=== PATIENT | male | born 1960 | race Caucasian/White ===

== ENCOUNTER → 2017-12-24 | Outpatient (CLI) | payer BC ==
[~2017-12-24] MED LIST: HYDR-4225 PO; IBU800 PO; MV-M1TAB7 PO; PRED20TA6 PO; TRA50 PO; VALA100059 PO
[2017-12-24 16:58] LABS: PLATELET COUNT, AUTOMATED 275 K/uL (150-450)
== END ==
LOC: LAB 16:41
PROVIDERS: ATTEND Emergency Medicine
DX: R63.4 Abnormal weight loss (principal)
CPT/HCPCS: 36415; 82040; 82247; 82310; 82374; 82435; 82565; 82947; 82977; 84075; 84132; 84155; 84295; 84443; 84450; 84460; 84520; 85025

== ENCOUNTER 2017-12-29 12:17 | Emergency (ER) | payer BC ==
--- NOTE | 2017-12-29 12:39 | ER Report ---
History and Physical Time Seen By MD: 12:39 Hx. of Stated Complaint: patient was sent over by dr sparks office due to "elevated liver tests" patient was suppose to have a ultrasound today at 1pm; patient states he has been sick for five months now and feels sick to his stomach and light headed HPI/ROS CHIEF COMPLAINT: Abdominal pain HISTORY OF PRESENT ILLNESS: This 57-year-old male reports fever right upper quadrant pain and lightening of the skin on his arms as well as itchiness in these areas. Fevers up to 102. He also reports malaise for the past 3 months and weight loss and the amount of 20-30 pounds over the past 3 months. States he hasn't been feeling right. He was referred by his doctor's clinic today who noticed a change in his white blood cell count increasing from 11-21. They are Are concerned about ascending cholangitis. REVIEW OF SYSTEMS: Constitutional: Generalized weakness Eyes: No discharge. ENT: No sore throat. Cardiovascular: No chest pain, no palpitations. Respiratory: No cough, no shortness of breath. Gastrointestinal: No hemoptysis Genitourinary: No hematuria. Musculoskeletal: No back pain. Skin: No rashes. Neurological: No headache. Allergies: Coded Allergies: No Known Drug Allergies (Verified , 12/29/17) Home Meds Active Scripts Hydroxyzine Hcl (HYDROXYZINE HCL) 25 Mg Tablet, 25 MG PO TID Y for PRn, #60 TAB 0 Refills Prov:HERACLIO SPARKS MD 12/25/17 Reported Medications Mv-Mn/Fa/Lycopene/Lut/Hb#178 (SHELBY MULTIVIT FOR MEN CAPLET) 1 Each Tablet, 1 EACH PO DAILY 12/24/17 Discontinued Reported Medications [None] No Conflict Check 04/26/13 Discontinued Scripts Prednisone (PREDNISONE) 20 Mg Tablet, 20 MG PO as directed, #13 0 Refills Prov:EDNA WYNNE MD 09/04/13 Valacyclovir Hcl (VALACYCLOVIR) 1,000 Mg Tablet, 1000 MG PO TID for 7 Days, 0 Refills Prov:EDNA WYNNE MD 09/04/13 Hx Smoking: No Smoking Status: Former Smoker Exposure to Second Hand Smoke?: Yes Hx Substance Use Disorder: No Hx Alcohol Use: No (hasnt drank nor smoked in 30 years) Constitutional Vital Sign - Last 24 Hours 12/29/17 12/29/17 12/29/17 12/29/17 12:26 12:28 12:30 12:47 Temp 99.7 Pulse 111 110 Resp 22 37 B/P (MAP) 137/89 (105) 137/81 134/89 (104) Pulse Ox 96 92 O2 Delivery Room Air 12/29/17 12/29/17 12/29/17 12/29/17 13:00 13:30 13:47 14:00 Pulse 103 Resp 35 B/P (MAP) 121/74 (90) 123/74 (90) 121/73 (89) Pulse Ox 92 Physical Exam General Appearance: The patient is alert, has no immediate need for airway protection and no signs of toxicity. He appears to be in no acute distress Eyes: Pupils equal and round no pallor or injection. No icterus ENT, Mouth: Mucous membranes are moist. Respiratory: There are no retractions, lungs are clear to auscultation. Cardiovascular: Regular rate and rhythm. No murmurs gallops or rubs Gastrointestinal: Abdomen is soft and non tender, no masses, bowel sounds normal. Right upper quadrant pain is elicited only with palpation at the medial ribs otherwise no peritoneal signs are present. Neurological: Normal neurological exam Skin: Warm and dry, no rashes. No clear jaundice Musculoskeletal: Neck is supple non tender. Extremities are nontender, nonswollen and have full range of motion. [ ] DIFFERENTIAL DIAGNOSIS: After history and physical exam differential diagnosis was considered for cholangitis ascending biliary tract disease. Cancer, liver mass, lymphoma. This is incomplete list of diagnoses considered. Medical Decision Making Data Points Laboratory Hematology Test 12/29/17 12:36 12/29/17 13:40 Prothrombin Time 15.3 seconds (12.0-14.4) Prothromb Time International Ratio 1.20 Activated Partial Thromboplast Time 47 seconds (23-35) Ammonia < 9 UMOL/L (9-33) Influenza Virus Type A (PCR) Negative (NEGATIVE) Influenza Virus Type B (PCR) Negative (NEGATIVE) Group A Streptococcus Screen Negative (NEGATIVE) Chemistry Test 12/29/17 12:36 12/29/17 13:40 Prothrombin Time 15.3 seconds (12.0-14.4) Prothromb Time International Ratio 1.20 Activated Partial Thromboplast Time 47 seconds (23-35) Ammonia < 9 UMOL/L (9-33) Influenza Virus Type A (PCR) Negative (NEGATIVE) Influenza Virus Type B (PCR) Negative (NEGATIVE) Group A Streptococcus Screen Negative (NEGATIVE) Coagulation Test 12/29/17 12:36 Prothrombin Time 15.3 seconds Prothromb Time International Ratio 1.20 Activated Partial Thromboplast Time 47 seconds ED Course/Re-evaluation ED Course Radiology callback: multiple retroperitoneal lymph nodes involved. Perihilar mass. Large gallstone with mass in gallbladder wall. Consult placed to Dr. Becerra (general surgery) and Carmen Myers ( hospitalist); recommends transfer to [facility]. Transfer center has been contacted. Re-evaluation Pt accepted for admission at [facility]: Dr. Krista Meehan accepting; recommends zosyn IV for now. Vitals stable for transfer. Decision to Disposition Date: Dec 29, 2017 Decision to Disposition Time: 14:58 Depart Departure Latest Vital Signs Vital Signs Date Time Temp Pulse Resp B/P (MAP) Pulse Ox O2 Delivery O2 Flow Rate FiO2 12/29/17 14:00 121/73 (89) 12/29/17 13:47 103 35 92 12/29/17 12:28 99.7 Room Air Impression: Primary Impression: Ascending cholangitis Condition: Improved Disposition: [facility]FER TO [facility] Referrals: HERACLIO SPARKS MD (PCP) KEYUR FUENTES MD Dec 29, 2017 12:39
[2017-12-29] MEDS ORDERED: diphenhydrAMINE 50 MG/ML VIAL IVP ONE (12:55)
[2017-12-29] MEDS ORDERED: NS(*) 0.9% 1000 ML BAG 1,000 ML IV ONE (12:55)
[2017-12-29] MEDS ORDERED: IOPAMIDOL 76% 75 ML INFUS BTL 75 ML ONE (13:05)
[2017-12-29 13:13] LABS: INR 1.2
--- NOTE | 2017-12-29 13:39 | RADIOLOGY IMAGING REPORT ---
FACILITY: [facility] PATIENT NAME: Tez Payton : 1960 MR: [id number] V: [id number] EXAM DATE: ORDERING PHYSICIAN: KEYUR FUENTES TECHNOLOGIST: [place] [facility] [place]z [place] : 1960 Visit/Account:[id number] Date of Sevice: 12/29/2017 CHEST PA AND LAT COMPARISONS: Single view chest dated November 28, 2016 ADDITIONAL PERTINENT HISTORY: Fever and pneumonia. FINDINGS: Cardiomediastinal silhouette: Negative. Pulmonary vasculature: Negative. Lung johnston: Negative. Pleural spaces: Negative. Osseous structures: Negative. Surrounding soft tissues: Negative. IMPRESSION: No evidence of acute cardiopulmonary disease. Report Dictated By: Rishi Saenz MD at 12/29/2017 1:33 PM Report E-Signed By: Rishi Saenz MD at 12/29/2017 1:34 PM WSN:[id number]
--- NOTE | 2017-12-29 14:10 | RADIOLOGY IMAGING REPORT ---
FACILITY: PATIENT NAME: Tez Payton : 1960 MR: [id number] V: [id number] EXAM DATE: ORDERING PHYSICIAN: KEYUR FUENTES TECHNOLOGIST: Location: [facility] Patient: Tez Payton : 1960 Visit/Account:[id number] Date of Sevice: 12/29/2017 ABDOMEN/PELVIS WITH CONTRAST HISTORY: liver mass TECHNIQUE: Following administration of IV contrast contiguous axial images acquired through the abdom en/pelvis. Coronal and sagittal reformatting also performed. Dose Lowering Technique One of the following dose optimization techniques was utilized in the performance of this exam: Autom ated exposure control; adjustment of the mA and/or kV according to the patient's size; or use of an i terative reconstruction technique. Specific details can be referenced in the facility's radiology C T exam operational policy. CONTRAST: 75 mL Isovue-370 COMPARISON: None. FINDINGS: Visualized lung bases: There is a 7 mm noncalcified nodule in the right lower lobe best seen on imag e 22 of series 2. There is a focal area of airspace consolidation in the inferior right lower lobe as well. incompletely imaged is a left hilar mass measuring approximately 2.5 x 2 cm Hepatobiliary: There is a 1.7 cm gallstone. The gallbladder is partially contracted and there is th ickening of the gallbladder wall. There is also a 9 mm hyperattenuating mass projecting from the ant erior distal, gallbladder wall. The liver appears diffusely heterogeneous with a slightly lobular contour. Spleen: Enlarged measuring 14.8 cm in length Adrenals: There Is mild nodular thickening of the adrenal glands Pancreas: Negative. Kidneys ureters or bladder: Subcentimeter hypodensities in both kidneys are too small to characterize Genitalia: Negative. GI: Negative. Vessels/spaces/nodes: There is bulky retroperitoneal adenopathy present. A education courses sales representative aortocava l lymph node measures 3.4 x 2.2 x 2.1 cm. Portacaval lymph node measures 1.7 x 5.9 x 3.4 cm. A education courses sales representative celiac node measures 2.9 x 1.8 x 1.8 cm. Small iliac lymph nodes are also present Bones/soft tissues: No aggressive appearing bone lesions are seen Additional findings: None pertinent. IMPRESSION: Bulky retroperitoneal adenopathy, incompletely imaged left hilar mass and splenomegaly. These findin gs are extremely concerning for malignancy such as lymphoma or other lymphoproliferative process. A 7 mm noncalcified nodule in the right lower lobe For a nodule measuring 6 to 8 mm in size, for a lo w risk patient, CT is recommended at 6-[address] at 18-24 months. In a high-risk pat ient, CT is recommended in 6-12 months then at 18-24 months.. There is also a focal area of airspace consolidation the inferior right lower lobe which could represent scarring atelectasis or infiltrate 1.7 cm gallstone. The gallbladder is contracted which could be related to a recent meal although cli nical correlation needed. There is a 9 mm hyperattenuating mass projecting from the anterior distal gallbladder wall. .Liver appears diffusely heterogeneous with a slightly lobular contour Results were called to KEYUR FUENTES at 12/29/2017 2:05 PM. Report Dictated By: Pattie Galan MD at 12/29/2017 1:47 PM Report E-Signed By: Pattie Galan MD at 12/29/2017 2:07 PM WSN:[id number]
[2017-12-29] MEDS ORDERED: PIPERACILLIN/TAZO* 4.5 GM VIAL 4.5 GM in NS(*) 0.9% 100 ML ADDVANT BAG 100 ML IVPB ONE (15:00)
[2017-12-29 15:30] VITALS: BP 116/66
== END 2017-12-29 16:03 | disposition short-term general hospital (02) ==
LOC: ER 12:41
DX: K83.0 Cholangitis (principal)
CPT/HCPCS: 71046; 74177; 82140; 85610; 85730; 87081; 87502; 87880; 96361; 96365; 96375; 99285; J1200; J2543; J7030; J7050; Q9967

== ENCOUNTER → 2017-12-29 | Outpatient (CLI) | payer BC ==
[2017-12-29 11:19] LABS: PLATELET COUNT, AUTOMATED 402 K/uL (150-450)
== END ==
LOC: US 10:10
PROVIDERS: ATTEND Emergency Medicine
DX: R74.8 Abnormal levels of other serum enzymes (principal); R50.9 Fever, unspecified
CPT/HCPCS: 36415; 82040; 82247; 82310; 82374; 82435; 82565; 82947; 84075; 84132; 84155; 84295; 84450; 84460; 84520; 85025; 86140; 87040

== ENCOUNTER → 2017-12-29 | Outpatient (CLI) | payer BC | LOC: AMB 15:42 | PROVIDERS: ATTEND Nurse Practitioner | DX: K83.0 Cholangitis (principal); D72.829 Elevated white blood cell count, unspecified | CPT/HCPCS: A0425; A0426 ==

== ENCOUNTER → 2018-01-19 | Outpatient (CLI) | payer BC ==
--- NOTE | 2018-01-20 18:36 | RADIOLOGY IMAGING REPORT ---
FACILITY: [facility] [place] PATIENT NAME: ELDER HOWARD : [id number] MR: [id number] V: [id number] EXAM DATE: ORDERING PHYSICIAN: DREA ARAUZ TECHNOLOGIST: Deborah Cutler EXAMINATION:TWO-DIMENSIONAL ECHOCARDIOGRAPH REASON:HODGKIN'S LYMPHOMA 2D Measurements (normal values in centimeters) LV endLV endRV endVent.LV PostAorticLeftPercent DiastolicSystolicDiastolicSeptumWallRootAtriumShortening (3.5-5.7)(0.9-2.6)(0.6-1.1)(0.6-1.1)(2.0-3.7)(1.9-4.0)(25-35%) [id number]% STROKE VOLUME: 137ml ESTIMATED EJECTION FRACTION: 51% PARASTERNAL LONG AXIS: Left ventricular systolic function appears to be mildly decreased. There appears to be some akinesis along the apex of the left ventricle. The left ventricle is enlarged. The right ventricle is the upper range of normal in size. Aortic valve & mitral valve both appear to open normally. Color examination of the valves reveals a trace of mitral insufficiency & a trace of aortic insufficiency present. Right ventricle appears to contract normally & the TAPSE is measured within normal ranges at 2.4. There is also some dyskinetic motion along a portion of the interventricular septum. PARASTERNAL SHORT AXIS: Overall left ventricular systolic function appears to be decreased. Akinesis along a portion of the interventricular septum & also the apex of the left ventricle. Aortic valve is trileaflet in configuration & appears to open normally. Color examination of the pulmonic valve was unremarkable. Color examination of the aortic valve revealed a trace of aortic insufficiency. Color examination of the tricuspid valve revealed a mild amount of tricuspid insufficiency. APICAL FOUR AND TWO CHAMBER: Akinesis along the apex & the apical portion of the interventricular septum. Otherwise appear to contract normally. Color examination of the mitral valve reveals a trace of mitral insufficiency. There is a mild amount of tricuspid insufficiency. The tricuspid regurgitation Vmax measured 3.58m/sec. Aortic valve area & mitral valve area both measure within normal ranges at 4.6 & 5.5cm2 respectively. Left atrial & right atrial volumes are measured within normal ranges at 16 & 14ml/m2. Some dyskinetic motion along the apical portion of the interventricular septum. Patient does appear to be in a bundle branch block. SUBCOSTAL VIEW: No pericardial effusion was noted. No atrioseptal or ventriculoseptal defects were appreciated. Definity contrast was used and wall motion abnormalities were shown as previously described. IVC is normal in size. Doppler examination of the mitral valve in diastole does reveal the A wave > E wave but is a difficult measurement. Strain measurements were done which showed some akinesis at the apex & we will use these measurements if further echocardiographs are desired. OVERALL IMPRESSION: 1. Slightly decreased left ventricular ejection fraction with some akinesis along the apical portion of the interventricular septum as well as the apex of the left ventricle. The left ventricle is enlarged. The right ventricle is the upper range of normal in size if not slightly enlarged. The other chamber sizes are normal. 2. A trileaflet aortic valve with no aortic stenosis, minimal aortic sclerosis & a trace of aortic insufficiency. 3. A trace of mitral insufficiency with no mitral stenosis. 4. A mild amount of tricuspid insufficiency with estimated right ventricular systolic pressures of 54mm Hg which does include an estimated right atrial pressure of 3mm Hg indicating moderate pulmonary hypertension & increased right ventricular systolic pressures. Dictated by: Chun Hernandez M.D. on 01/19/2018 at 19:20 Transcribed by: SHUBHAM on 01/20/2018 at 10:51 Approved by: Chun Hernandez M.D. on 01/20/2018 at 18:35 [facility]
== END ==
LOC: RAD 13:59
PROVIDERS: ATTEND Internal Medicine Medical Oncology
DX: I51.7 Cardiomegaly (principal); I25.10 Atherosclerotic heart disease of native coronary artery without angina pectoris; I35.1 Nonrheumatic aortic (valve) insufficiency; I34.0 Nonrheumatic mitral (valve) insufficiency; I27.20 Pulmonary hypertension, unspecified
CPT/HCPCS: 93306

== ENCOUNTER 2018-01-28 20:22 | Inpatient (IN) | payer BC, OTHER ==
[~2018-01-28] VITALS: Ht 172.7 cm; Wt 82.1 kg
[~2018-01-28 20:22] MED LIST changes: -ACET-1966 PO; -AZIT-1 PO; -CEF300 PO; -DEX4 PO; -HYDR-385 PO; -LIDO5T TP; -LISI5TAB25 PO; -LORA-630 PO; -METO25TA23 PO; -NAPR220C12 PO; -ONDA4TAB PO; -PEGFILGRASTIM 6 MG/0.6 ML SYR SUBQ ONE; -PROC10TA4 PO; -PROC25SU3 PO
--- NOTE | 2018-01-28 20:50 | ER Report ---
History and Physical Time Seen By MD: 20:50 Hx. of Stated Complaint: patients states that today gino had gotten progressively confused and is worried that the chemo yesterday (brentuximab vedotin) and neulasta around 1330 ; states that the oncologist states to be very causious of this medication HPI/ROS CHIEF COMPLAINT: Confusion HISTORY OF PRESENT ILLNESS: This is a 57 year old male. His had him come to the ER because of episodes of confusion at home today. He is very weak and tired, sleeping alot. He was in the hospital in [place] recently, admitted twice. The first time in late december for ascending cholangitis and had his gallbladder removed. He was on antibiotics. Discovered that he had Hodgkins Lymphoma. Ongoing workup. He was re-admitted to [place] because of Sepsis and was on antibiotics there by report of the patient's . Later on, had completion of studies for starting his chemotherapy, and this was started on chemotherapy and discharged home on Friday (2 days ago). He is not on any antibiotics. He says he has been having hot and cold flashes today. He has started having edema of the lower extremities since discharge on Friday as well. He has mild cough, but does not feel short of breath. He has no chest pain. He has recently started on Neulasta as well. REVIEW OF SYSTEMS: Constitutional: As above. Eyes: No vision changes. ENT: No sore throat. No congestion. Cardiovascular: No palpitations. Respiratory: As above. Gastrointestinal: No abdominal pain. No nausea or vomiting. Normal bowel movement today. Genitourinary: No dysuria. Musculoskeletal: No muscle or joint pains. Skin: No rashes. Neurological: No headache. Allergies: Coded Allergies: No Known Drug Allergies (Verified , 01/28/18) Home Meds Reported Medications Hydroxyzine Hcl (HYDROXYZINE HCL) 25 Mg Tablet, 25 MG PO 01/28/18 Acetaminophen (TYLENOL) 325 Mg Tablet, 325 MG PO, TAB 01/28/18 Naproxen Sodium (ALEVE) 220 Mg Capsule, 220 MG PO TID, CAPSULE 01/28/18 Hydrocodone Bit/Acetaminophen (HYDROCODON-ACETAMINOPHEN 5-325) 1 Each Tablet, 1 EACH PO Q6H, TAB 01/28/18 Prochlorperazine Maleate (COMPAZINE) 25 Mg Supp.rect, 10 MG PO PRN 01/28/18 Ondansetron (ZOFRAN ODT) 4 Mg Tab.rapdis, 8 MG PO Q12H, TAB.ALYSHA 01/28/18 Lorazepam (LORAZEPAM) 0.5 Mg Tablet, 0.5 MG PO PRN 01/28/18 Lidocaine Hcl (LIDOCAINE) 35.44 Gm Oint, 35.44 GM TP 01/28/18 Dexamethasone 4 Mg Tab (DEXAMETHASONE 4 MG TAB) 4 Mg Tab, 4 MG PO PRN, TAB 01/28/18 Metoprolol Succinate (METOPROLOL SUCCINATE) 25 Mg Tab.er.24h, 1 TAB PO QDAY, TAB 01/28/18 Lisinopril (LISINOPRIL) 5 Mg Tablet, 2.5 MG PO QDAY, TAB 01/28/18 Discontinued Reported Medications Mv-Mn/Fa/Lycopene/Lut/Hb#178 (SHELBY MULTIVIT FOR MEN CAPLET) 1 Each Tablet, 1 EACH PO DAILY 12/24/17 Discontinued Scripts Hydroxyzine Hcl (HYDROXYZINE HCL) 25 Mg Tablet, 25 MG PO TID Y for PRn, #60 TAB 0 Refills Prov:HERACLIO LORA MD 12/25/17 Reviewed Nurses Notes: Yes Hx Smoking: Yes Smoking Status: Former Smoker Exposure to Second Hand Smoke?: No Hx Substance Use Disorder: No Hx Alcohol Use: No (hasnt drank nor smoked in 30 years) Constitutional Vital Sign - Last 24 Hours 01/28/18 01/28/18 20:30 21:00 Temp 98.3 Pulse 121 Resp 18 B/P (MAP) 102/56 Pulse Ox 91 O2 Delivery Room Air O2 Flow Rate 1.5 Physical Exam General Appearance: The patient is alert. No acute distress. Eyes: Pupils are equal, round. No pallor, injection or icterus. ENT: Mucous membranes are moist. Normal oral mucosa. Posterior oropharynx is normal. Normal tympanic membranes and canals. Neck: Supple and non tender. No lymphadenopathy. Respiratory: Lungs somewhat diminished on the right base. No wheezing, rales or rhonchi noted. Cardiovascular: Regular rate and rhythm. No murmurs, gallops or rubs. Normal capillary refill. 1+ bilateral lower extremity edema. Gastrointestinal: Abdomen is soft and non tender. Nondistended. Normal active bowel sounds. Neurological: Alert and oriented x3 at this time. He will have episodes where he will trail off and not finish his sentence, but no confusion at this interview. Skin: Warm and dry. Musculoskeletal: No tenderness in palpation of the cervical, thoracic and lumbar spine. DIFFERENTIAL DIAGNOSIS: After history and physical exam, differential diagnosis was considered for patient who has recently been in the hospital and started on chemotherapy for Hodgkin's lymphoma, who is having episodes of confusion reported by his at home, no fever at this time but hot and cold flashes at home. Concern for infectious process causing delirium. We'll need to check for urinary infection or pulmonary infectious process or a viral infection. Also consider affective chemotherapy or metabolic disturbance. Also concerned about the new onset of edema that he is having, most likely cardiac or metabolic disturbance or chemotherapy effect, less likely would be something like blood clots. Medical Decision Making Data Points Result Diagram: 01/28/18 2100 01/28/18 2100 Laboratory Hematology Test 01/28/18 21:00 Red Blood Count 3.33 M/uL (4.00-5.60) Mean Corpuscular Volume 84.1 fL (80.0-96.0) Mean Corpuscular Hemoglobin 28.3 pg (26.0-33.0) Mean Corpuscular Hemoglobin Concent 33.7 g/dL (32.0-36.0) Red Cell Distribution Width 15.3 % (11.5-14.5) Mean Platelet Volume 8.4 fL (7.2-11.1) Neutrophils (%) (Auto) 95.6 % (39.4-72.5) Lymphocytes (%) (Auto) 3.8 % (17.6-49.6) Monocytes (%) (Auto) 0.1 % (4.1-12.4) Eosinophils (%) (Auto) 0.0 % (0.4-6.7) Basophils (%) (Auto) 0.5 % (0.3-1.4) Nucleated RBC Relative Count (auto) 0.0 /100WBC Neutrophils # (Auto) 23.9 K/uL (2.0-7.4) Lymphocytes # (Auto) 0.9 K/uL (1.3-3.6) Monocytes # (Auto) 0.0 K/uL (0.3-1.0) Eosinophils # (Auto) 0.0 K/uL (0.0-0.5) Basophils # (Auto) 0.1 K/uL (0.0-0.1) Nucleated RBC Absolute Count (auto) 0.00 K/uL Peripheral Blood Smear Yes Y/N Sodium Level 133 mmol/L (137-145) Potassium Level 4.4 mmol/L (3.5-5.0) Chloride Level 98 mmol/L (98-107) Carbon Dioxide Level 26 mmol/L (22-30) Blood Urea Nitrogen 27 mg/dl (9-21) Creatinine 0.90 mg/dl (0.66-1.25) Glomerular Filtration Rate Calc > 60.0 Random Glucose 100 mg/dl (75-110) Lactate 1.2 mmol/L (0.7-2.1) Calcium Level 8.3 mg/dl (8.4-10.2) Total Bilirubin 1.4 mg/dl (0.2-1.3) Aspartate Amino Transf (AST/SGOT) 38 U/L (0-35) Alanine Aminotransferase (ALT/SGPT) 62 U/L (0-56) Alkaline Phosphatase 431 U/L (0-126) Total Protein 5.6 gm/dl (6.3-8.2) Albumin 2.4 g/dl (3.5-5.0) Chemistry Test 01/28/18 21:00 White Blood Count 25.0 k/uL (4.5-11.0) Red Blood Count 3.33 M/uL (4.00-5.60) Hemoglobin 9.4 g/dL (14.0-18.0) Hematocrit 28.0 % (42.0-52.0) Mean Corpuscular Volume 84.1 fL (80.0-96.0) Mean Corpuscular Hemoglobin 28.3 pg (26.0-33.0) Mean Corpuscular Hemoglobin Concent 33.7 g/dL (32.0-36.0) Red Cell Distribution Width 15.3 % (11.5-14.5) Platelet Count 203 K/uL (150-450) Mean Platelet Volume 8.4 fL (7.2-11.1) Neutrophils (%) (Auto) 95.6 % (39.4-72.5) Lymphocytes (%) (Auto) 3.8 % (17.6-49.6) Monocytes (%) (Auto) 0.1 % (4.1-12.4) Eosinophils (%) (Auto) 0.0 % (0.4-6.7) Basophils (%) (Auto) 0.5 % (0.3-1.4) Nucleated RBC Relative Count (auto) 0.0 /100WBC Neutrophils # (Auto) 23.9 K/uL (2.0-7.4) Lymphocytes # (Auto) 0.9 K/uL (1.3-3.6) Monocytes # (Auto) 0.0 K/uL (0.3-1.0) Eosinophils # (Auto) 0.0 K/uL (0.0-0.5) Basophils # (Auto) 0.1 K/uL (0.0-0.1) Nucleated RBC Absolute Count (auto) 0.00 K/uL Peripheral Blood Smear Yes Y/N Glomerular Filtration Rate Calc > 60.0 Lactate 1.2 mmol/L (0.7-2.1) Calcium Level 8.3 mg/dl (8.4-10.2) Total Bilirubin 1.4 mg/dl (0.2-1.3) Aspartate Amino Transf (AST/SGOT) 38 U/L (0-35) Alanine Aminotransferase (ALT/SGPT) 62 U/L (0-56) Alkaline Phosphatase 431 U/L (0-126) Total Protein 5.6 gm/dl (6.3-8.2) Albumin 2.4 g/dl (3.5-5.0) EKG/Imaging Imaging CT OF THE BRAIN WITHOUT CONTRAST HISTORY: Confusion PROCEDURE: 3.0 mm contiguous axial sections were performed through the brain. Sagittal and coronal reformats were submitted. COMPARISON: CT brain of September 04, 2013 FINDINGS: BRAIN: Brain and intracranial structures: There is no mass lesion, hemorrhage or acute infarct. Orbits (included portions): Unremarkable Scalp: Normal. Skull: Normal. Paranasal sinuses and mastoid air cells (included portions): Normal. IMPRESSION: No evidence of acute intracranial abnormality by CT. One of the following dose optimization techniques was utilized in the performance of this exam: Automated exposure control; adjustment of the mA and/ or kV according to the patient's size; or use of an iterative reconstruction technique. Specific details can be referenced in the facility's radiology CT exam operational policy. Report Dictated By: Deonte Dietz MD at 01/28/2018 10:00 PM CHEST: Indication: Altered mental status. Technique: Frontal and lateral views were obtained. Comparison: 12/29/2017 Lines and tubes: A port catheter is now present in the SVC. Skeletal and soft tissue structures: Intact and unchanged. Heart and mediastinum: Stable. Lung johnston: There is now evidence of parenchymal consolidation and volume loss in the right lower lobe. There is minimal atelectasis or scarring at the left base. Pleural spaces: A moderate-sized right pleural effusion is now present. The lateral view demonstrates a minimal left effusion. Impression: There is now evidence of parenchymal consolidation and volume loss in the right lower lobe. A moderate-sized right pleural effusion has developed. Report Dictated By: Ascencion Fregoso MD at 01/28/2018 10:23 PM Duplex Doppler ultrasound of the bilateral lower extremities: Indication: Swelling. Technique: Compression ultrasound with duplex Doppler imaging was performed. Comparison: None. Findings: There is normal compression of the bilateral common femoral, superficial femoral, popliteal, peroneal, posterior tibial, and proximal saphenous veins. There is no evidence of echogenic thrombus. The Doppler patterns of resting flow and augmentation are within normal limits. There is no mass or fluid collection. IMPRESSION: No evidence of deep vein thrombosis in either lower extremity. Report Dictated By: Ascencion Fregoso MD at 01/28/2018 11:30 PM ED Course/Re-evaluation Clinical Indication for ER IV: Hydration, IV Access ED Course After initial evaluation, the patient had multiple things going on, all nonspecific there were difficult to determine. Head CT was obtained and was negative. The patient did have episodes of confusion but most the time just slapped while he was here in the ER. The grams were done and negative for deep vein thrombosis. X-ray was done and did show new effusion and consolidation in the right lower lobe. His white count is elevated but he also is on the last episodes hard to say if this is a result of the medicine or infectious etiology. He has been having hot and cold flashes but no documented temperatures and he has been afebrile here. His blood pressure has been running a little bit on the low side and he is tachycardic. Found to be prerenal on metabolic panel and we did give him a liter fluid which did help his tachycardia reduce a little bit, but still running tachycardic. Once everything was back, I called and spoke with Dr. Renner. I'm unsure about exactly what is happening with the hospitalizations in [place] and we'll need to get more information about those. Recommended admission for pneumonia, we'll just treat based on possible nosocomial pneumonia. Decision to Disposition Date: Jan 29, 2018 Decision to Disposition Time: 00:57 Depart Departure Latest Vital Signs Vital Signs Date Time Temp Pulse Resp B/P (MAP) Pulse Ox O2 Delivery O2 Flow Rate FiO2 01/28/18 21:00 1.5 01/28/18 20:30 98.3 121 18 102/56 91 Room Air Impression: Primary Impression: Pneumonia Additional Impressions: Confusion Pleural effusion Edema Condition: Condition Unchanged Disposition: Admitted from ER Referrals: HERACLIO LORA MD (PCP) Problem Qualifiers Primary Impression: Pneumonia Pneumonia type: due to unspecified organism Laterality: right Lung location : lower lobe of lung Qualified Codes: J18.1 - Lobar pneumonia, unspecified organism EDNA WYNNE MD Jan 28, 2018 20:50
[2018-01-28] MEDS ORDERED: HYDR-4225 PO (20:51)
[2018-01-28] MEDS ORDERED: DEX4 PO (20:51)
[2018-01-28] MEDS ORDERED: HYDR-385 PO (20:51)
[2018-01-28] MEDS ORDERED: NAPR220C12 PO (20:51)
[2018-01-28] MEDS ORDERED: LIDO5T TP (20:51)
[2018-01-28] MEDS ORDERED: LORA-630 PO (20:51)
[2018-01-28] MEDS ORDERED: PROC25SU3 PO (20:51)
[2018-01-28] MEDS ORDERED: ACET-1966 PO (20:51)
[2018-01-28] MEDS ORDERED: ONDA4TAB PO (20:51)
[2018-01-28] MEDS ORDERED: LISI5TAB25 PO (20:51)
[2018-01-28] MEDS ORDERED: METO25TA23 PO (20:51)
[2018-01-28 21:22] LABS: PLATELET COUNT, AUTOMATED 203 K/uL (150-450)
[2018-01-28] MEDS ORDERED: NS(*) 0.9% 1000 ML BAG 1,000 ML IV ONE (22:00)
--- NOTE | 2018-01-28 22:17 | RADIOLOGY IMAGING REPORT ---
FACILITY: [facility] PATIENT NAME: Tez Payton : 1960 MR: [id number] V: [id number] EXAM DATE: ORDERING PHYSICIAN: EDNA WYNNE TECHNOLOGIST: Location: [facility] - [place] Patient: Tez Payton : 1960 Visit/Account:[id number] Date of Sevice: 01/28/2018 CT OF THE BRAIN WITHOUT CONTRAST HISTORY: Confusion PROCEDURE: 3.0 mm contiguous axial sections were performed through the brain. Sagittal and coronal r eformats were submitted. COMPARISON: CT brain of September 04, 2013 FINDINGS: BRAIN: Brain and intracranial structures: There is no mass lesion, hemorrhage or acute infarct. Orbits (included portions): Unremarkable Scalp: Normal. Skull: Normal. Paranasal sinuses and mastoid air cells (included portions): Normal. IMPRESSION: No evidence of acute intracranial abnormality by CT. One of the following dose optimization techniques was utilized in the performance of this exam: Autom ated exposure control; adjustment of the mA and/or kV according to the patient's size; or use of an i terative reconstruction technique. Specific details can be referenced in the facility's radiology C T exam operational policy. Report Dictated By: Deonte Dietz MD at 01/28/2018 10:00 PM Report E-Signed By: Deonte Dietz MD at 01/28/2018 10:12 PM WSN:[id number]
--- NOTE | 2018-01-28 22:30 | RADIOLOGY IMAGING REPORT ---
FACILITY: [facility] - [place] PATIENT NAME: Tez Payton : 1960 MR: [id number] V: [id number] EXAM DATE: ORDERING PHYSICIAN: EDNA WYNNE TECHNOLOGIST: Location: [facility] - [place] Patient: Tez Payton : 1960 Visit/Account:[id number] Date of Sevice: 01/28/2018 CHEST: Indication: Altered mental status. Technique: Frontal and lateral views were obtained. Comparison: 12/29/2017 Lines and tubes: A port catheter is now present in the SVC. Skeletal and soft tissue structures: Intact and unchanged. Heart and mediastinum: Stable. Lung johnston: There is now evidence of parenchymal consolidation and volume loss in the right lower lo be. There is minimal atelectasis or scarring at the left base. Pleural spaces: A moderate-sized right pleural effusion is now present. The lateral view demonstrates a minimal left effusion. Impression: There is now evidence of parenchymal consolidation and volume loss in the right lower lob e. A moderate-sized right pleural effusion has developed. Report Dictated By: Ascencion Fregoso MD at 01/28/2018 10:23 PM Report E-Signed By: Ascencion Fregoso MD at 01/28/2018 10:27 PM [id number]
--- NOTE | 2018-01-28 23:53 | RADIOLOGY IMAGING REPORT ---
FACILITY: [facility] - [place] PATIENT NAME: Tez Payton : 1960 MR: [id number] V: [id number] EXAM DATE: ORDERING PHYSICIAN: EDNA WYNNE TECHNOLOGIST: Location: [facility] - [place] Patient: Tez Payton : 1960 Visit/Account:[id number] Date of Sevice: 01/28/2018 Duplex Doppler ultrasound of the bilateral lower extremities: Indication: Swelling. Technique: Compression ultrasound with duplex Doppler imaging was performed. Comparison: None. Findings: There is normal compression of the bilateral common femoral, superficial femoral, popliteal , peroneal, posterior tibial, and proximal saphenous veins. There is no evidence of echogenic thrombu s. The Doppler patterns of resting flow and augmentation are within normal limits. There is no mass o r fluid collection. IMPRESSION: No evidence of deep vein thrombosis in either lower extremity. Report Dictated By: Ascencion Fregoso MD at 01/28/2018 11:30 PM Report E-Signed By: Ascencion Fregoso MD at 01/28/2018 11:49 PM WSN:[id number]
[2018-01-29] VITALS (7 sets, daily range): BP systolic 91–129; BP diastolic 44–79; Ht 172.7 cm; Wt 82.1 kg
[2018-01-29] MEDS ORDERED: cefTRIAXone 2 GM VIAL IVP SCH (02:00)
[2018-01-29] MEDS ORDERED: ALBUTEROL 2.5 MG/3 ML NEB NEB PRN (02:05)
[2018-01-29] MEDS ORDERED: INFLUENZA VIRUS VAC 0.5 ML SYR IM ONLY ONE (02:05)
[2018-01-29] MEDS ORDERED: IBUPROFEN 600 MG TAB PO PRN (02:05)
--- NOTE | 2018-01-29 02:21 | History & Physical ---
History of Present Illness Chief Complaint Fever History of Present Illness This patient presented to the emergency room complaining of fever and altered mental status. He was recently diagnosed with Hodgkin's lymphoma and began treatment with chemotherapy earlier this week. He received his second dose of chemo yesterday. His reports that he has been lying around on the couch all day and acting strangely. She noted that he was warm, but did not take his temperature. He denies any other symptoms, but he did complain of a cough earlier in the week. History Problems: (1) Chronic systolic (congestive) heart failure (2) Hodgkins lymphoma (3) Ascending cholangitis Status: Acute Home Meds Reported Medications Hydroxyzine Hcl (HYDROXYZINE HCL) 25 Mg Tablet, 25 MG PO 01/28/18 Acetaminophen (TYLENOL) 325 Mg Tablet, 325 MG PO, TAB 01/28/18 Naproxen Sodium (ALEVE) 220 Mg Capsule, 220 MG PO TID, CAPSULE 01/28/18 Hydrocodone Bit/Acetaminophen (HYDROCODON-ACETAMINOPHEN 5-325) 1 Each Tablet, 1 EACH PO Q6H, TAB 01/28/18 Prochlorperazine Maleate (COMPAZINE) 25 Mg Supp.rect, 10 MG PO PRN 01/28/18 Ondansetron (ZOFRAN ODT) 4 Mg Tab.rapdis, 8 MG PO Q12H, TAB.ALYSHA 01/28/18 Lorazepam (LORAZEPAM) 0.5 Mg Tablet, 0.5 MG PO PRN 01/28/18 Lidocaine Hcl (LIDOCAINE) 35.44 Gm Oint, 35.44 GM TP 01/28/18 Dexamethasone 4 Mg Tab (DEXAMETHASONE 4 MG TAB) 4 Mg Tab, 4 MG PO PRN, TAB 01/28/18 Metoprolol Succinate (METOPROLOL SUCCINATE) 25 Mg Tab.er.24h, 1 TAB PO QDAY, TAB 01/28/18 Lisinopril (LISINOPRIL) 5 Mg Tablet, 2.5 MG PO QDAY, TAB 01/28/18 Discontinued Reported Medications Mv-Mn/Fa/Lycopene/Lut/Hb#178 (SHELBY MULTIVIT FOR MEN CAPLET) 1 Each Tablet, 1 EACH PO DAILY 12/24/17 Discontinued Scripts Hydroxyzine Hcl (HYDROXYZINE HCL) 25 Mg Tablet, 25 MG PO TID Y for PRn, #60 TAB 0 Refills Prov:HERACLIO LORA MD 12/25/17 Allergies: Coded Allergies: No Known Drug Allergies (Verified , 01/28/18) Patient History: FH: dementia FATHER, , Age:82 MOTHER, , Age:90 FH: stroke MOTHER, , Age:90 Hx Smoking: Yes Smoking Status: Former Smoker Exposure to Second Hand Smoke?: No When Quit Tobacco?: 30 years ago Caffeine Intake: Coffee Caffeine/Cups Per Day: 1 Hx Alcohol Use: No (hasnt drank nor smoked in 30 years) Hx Substance Use Disorder: No Social Drug Use: Never Review of Systems Constitutional: Fever Exam Vital Signs Vital Signs Date Time Temp Pulse Resp B/P (MAP) Pulse Ox O2 Delivery O2 Flow Rate FiO2 01/29/18 01:45 92 Nasal Cannula 2.0 01/29/18 01:38 98.6 109 17 99/59 (72) Neuro: No Gross deficits Eyes: PERRLA Cardiovascular: Regular Rate and Rhythm Respiratory: Clear to Auscultation GI: Abd Soft and Non-Tender Extremities: No Edema Integumentary: No Cyanosis Medical Decision Making Data Points Result Diagram: 01/28/18 2100 01/28/18 2100 Item Value Date Time Lactate 1.2 mmol/L 01/28/182099 EKG / Imaging Imaging Chest x-ray reviewed. Assessment and Plan Problems: (1) Bacterial pneumonia Assessment & Plan: He did present with fever and altered mental status, but only reported a cough a few days ago. His chest x-ray does show a new infiltrate in the right lower lobe. His WBC is also elevated, but he did receive Neulasta earlier today. We have started him on empiric treatment with ceftriaxone and azithromycin. Blood cultures are pending. (2) Hodgkins lymphoma Assessment & Plan: He started treatments earlier this week. (3) Chronic systolic (congestive) heart failure Assessment & Plan: His echocardiogram showed a slightly decreased ejection fraction at 51%, He is on chronic treatment with lisinopril and metoprolol, which are both currently on hold secondary to low blood pressures. Venous Thromboembolism Antithrombotics Is Pt On Any Antithrombotics?: No Exam Sepsis Risk: No Definite Risk GIGI MORA DO Jan 29, 2018 02:21
[2018-01-29] MEDS ORDERED: NS(*) 0.9% 250 ML BAG 250 ML ONE (03:00)
[2018-01-29] MEDS: AZITHROMYCIN(*) 500 MG 500 MG in NS(*) 0.9% 250 ML BAG 250 ML IVPB SCH (03:08)
[2018-01-29] MEDS ORDERED: PROC10TA4 PO (03:36)
[2018-01-29] MEDS ORDERED: NS(*) 0.9% 1000 ML BAG 1,000 ML IV PRN (11:00)
[2018-01-29] MEDS: LORATADINE 10 MG TAB PO SCH (11:58)
[2018-01-29] MEDS: ENOXAPARIN 40 MG/0.4ML SYR SC SCH (11:59)
--- NOTE | 2018-01-29 13:40 | Medical Nutrition Therapy ---
Nutrition Anthropometrics Height (Inches): 68.00 Height (Calculated Centimeters: 172.864155 Weight (Pounds): 182 Weight (Calculated Kilograms): 82.554 BMI Calculated: 27.67 Parish Nutrition Score: Probably Inadequate Parish Nutrition Risk Score: 16 Dietary Referral Nutrition Risk Factors: Unplanned Loss >10lbs Nutrition Risk Comment: Loss of 40lbs in past 3 months, prior to cancer diagnosis Nutritional Diagnosis Nutritional Risk Acuity 2: Unintended Wt Loss >5%/mo Nutritional Risk Acuity 3: Cancer Nutritional Acuity: 2-Moderate Nutrition Diagnosis: Increased Nutrient Needs Nutrition Etiology: Increased Nutrient Needs Nutrition Problem/Etiology/Sym: pt undergoing treatment for hodgkins lymphoma. Energy Requirement: 2310 (kcal/day (28 kcal/kg)) Protein Requirement: 107 (g/day (1.3 g/kg)) Fluid Requirement: 2460 (mL/day (30 mL/kg)) Diet Type: Diet as Tolerated STACY/REG Nutrition Intervention: Cont diet as ordered, Encourage intake Nutrition Monitoring & Eval Nutrition Goals: Eat 90-100% Meal Nutrition Follow-Up: Poor Intake RD Patient Assessment Time: [address] Assessment Type: RD Assessment Patient Nutrition Acuity: 2-Moderate Follow Up Date: Feb 01, 2018 Nutritional Comment: 01/29 Pt admitted with bacterial pneumonia. Per physician note pt undergoing treatment for Hodgkin's Lymphoma. Pt diet as tolerated with no intakes recorded. Pt reports no difficulty chewing or swallowing. Pt reports no known food allergies. Pt states that he has had decreased intakes since the start of treatments because food tastes different than usual. Pt NA 133, BUN 27, Bili 1.4, total prot 5.6, alb 2.4. Trailer Assembler encouraged pt to increase intake. Monitor intakes and progress. MAURICE VALENCIA Jan 29, 2018 12:12
--- NOTE | 2018-01-29 14:16 | RADIOLOGY IMAGING REPORT ---
FACILITY: [facility] PATIENT NAME: Tez Payton : 1960 MR: [id number] V: [id number] EXAM DATE: ORDERING PHYSICIAN: KADEN COSTELLO TECHNOLOGIST: Location: [facility] Patient: Tez Payton : 1960 Visit/Account:[id number] Date of Sevice: 01/29/2018 Exam type: VENOUS DOPP UPPER RIGHT EXTREM History: R upper extrem swelling after heart cath Comparison: None. Findings: The right upper extremity veins were imaged including the right internal jugular vein, right subclavi an vein, right axillary vein, right brachial vein, right basilic vein, right radial vein and right ul elen vein revealing no evidence intraluminal thrombi. The veins were compressible and phasic.. The r ight innominate vein also appeared patent IMPRESSION: 1. No sonographic evidence DVT involving the right upper extremity veins Report Dictated By: Pattie Galan MD at 01/29/2018 1:58 PM Report E-Signed By: Pattie Galan MD at 01/29/2018 2:12 PM WSN:[email or web address]
--- NOTE | 2018-01-29 15:00 | Hospitalist Progress Note ---
Subjective Progress Notes Subjective The patient is feeling better today. Physical Exam Vital Signs Date Time Temp Pulse Resp B/P (MAP) Pulse Ox O2 Delivery O2 Flow Rate FiO2 01/29/18 12:06 97.7 88 16 93/55 (68) 94 Nasal Cannula 2.0 Intake and Output 01/30/18 06:59 Intake Total 120 ml Balance 120 ml Intake Oral 120 ml General Appearance: Alert, Awake, No Acute Distress Neuro: No Gross deficits Cardiovascular: Other (Slightly tachy, regular. ) Respiratory: Other (Markedly decreased BS right base. Eugophony noted.) GI: Soft and Non-Tender Extremities: Warm, Perfused Psych: Appropriate Mood & Affect Result Diagram: 01/28/18209901/28/182099 Assessment and Plan Problems: (1) Bacterial pneumonia Assessment & Plan: He did present with fever and altered mental status, but only reported a cough a few days ago. His chest x-ray does show a new infiltrate in the right lower lobe. His WBC is also elevated, but he did receive Neulasta earlier today. We have started him on empiric treatment with ceftriaxone and azithromycin. Blood cultures are negative thus far. (2) Hodgkins lymphoma Assessment & Plan: He started chemotherapy treatments earlier this week. (3) Chronic systolic (congestive) heart failure Assessment & Plan: His echocardiogram here showed a slightly decreased ejection fraction at 51%. He then had a cardiac catheterization which showed an EF of 35% with normal coronary arteries. He is on chronic treatment with lisinopril and metoprolol, which are both currently on hold secondary to low blood pressures. Time Spent on Plan of Care: < 30 min Exam Sepsis Risk: No Definite Risk KADEN COSTELLO MD Jan 29, 2018 15:00
[2018-01-30] MEDS ORDERED: cefTRIAXone(*) 2 GM VIAL 2 GM in NS(*) 0.9% 100 ML ADDVANT BAG 100 ML IVPB SCH (02:00)
[2018-01-30] MEDS: AZITHROMYCIN(*) 500 MG 500 MG in NS(*) 0.9% 250 ML BAG 250 ML IVPB SCH (02:24)
[2018-01-30 03:13] VITALS: BP 131/71
[2018-01-30 06:11] LABS: PLATELET COUNT, AUTOMATED 117 K/uL (150-450)
[2018-01-30 07:08] VITALS: BP 100/57
[2018-01-30] MEDS: LORATADINE 10 MG TAB PO SCH (09:22)
[2018-01-30] MEDS: ENOXAPARIN 40 MG/0.4ML SYR SC SCH (09:22)
[2018-01-30 09:46] LABS: PLATELET COUNT, AUTOMATED 112 K/uL (150-450)
[2018-01-30 11:33] VITALS: BP 98/57
[2018-01-30] MEDS ORDERED: CEF300 PO (13:50)
[2018-01-30] MEDS ORDERED: AZIT-1 PO (13:50)
--- NOTE | 2018-01-30 14:25 | Hospitalist Depart ---
Discharge Summary Reason for Hosp/Final Diag: (1) Bacterial pneumonia Hospital Course & Plan: He did present with fever and altered mental status, but only reported a cough a few days ago. His chest x-ray does show a new infiltrate in the right lower lobe. His WBC is also elevated, but he did receive Neulasta earlier today. We have started him on empiric treatment with ceftriaxone and azithromycin. Blood cultures are negative thus far. (2) Anemia Status: Acute Hospital Course & Plan: Secondary to chemotherapy. No evidence of bleeding. His Hgb is stable this morning on the repeat. Likely, there was dilutional affect from admission to today. He is to get a repeat on 02/02. He denies light headedness with ambulation. His heart rate is borderline tachycardic, but he is off the metoprolol. BP is low normal, but that appears to be his baseline. (3) Chronic systolic (congestive) heart failure Hospital Course & Plan: He had a cardiac catheterization which showed an EF of 35% with normal coronary arteries. He is on chronic treatment with lisinopril and metoprolol, which were both on hold secondary to low blood pressures. He can restart metoprolol, but has been instructed to stop it and call his Physician Asst if he is getting light headed with it. (4) Hodgkins lymphoma Hospital Course & Plan: [facility]ed by the [facility]. Departure Weight (Pounds): 181 Result Diagram: 01/30/1893701/30/18937 Item Value Date Time Hemoglobin 16.9 g/dL 12/29/17 1028 Hemoglobin 9.4 g/dL L 01/28/18 2100 Hemoglobin 7.3 g/dL *L 01/30/18 0515 Hemoglobin 7.8 g/dL *L 01/30/18 0938 White Blood Count 25.0 k/uL H 01/28/18 2100 White Blood Count 11.1 k/uL H 01/30/18 0515 White Blood Count 11.2 k/uL H 01/30/18 0938 Platelet Count 203 K/uL 01/28/182099 Platelet Count 117 K/uL L 01/30/18 0515 Platelet Count 112 K/uL L 01/30/18 0938 Creatinine 0.90 mg/dl 01/28/182099 Creatinine 0.60 mg/dl L 01/30/18 05 Creatinine 0.60 mg/dl L 01/30/18 09 Blood Urea Nitrogen 15 mg/dl 01/30/18 09 Blood Urea Nitrogen 16 mg/dl 01/30/18 05 Blood Urea Nitrogen 27 mg/dl H 01/28/182099 Total Bilirubin 1.4 mg/dl H 01/28/182099 Total Bilirubin 0.7 mg/dl 01/30/18 05 Alkaline Phosphatase 431 U/L H 01/28/18 2100 Alkaline Phosphatase 286 U/L H 01/30/18 0515 Aspartate Amino Transf (AST/SGOT) 12 U/L 01/30/18 05 Alanine Aminotransferase (ALT/SGPT) 34 U/L 01/30/18 05 Aspartate Amino Transf (AST/SGOT) 38 U/L H 01/28/182099 Alanine Aminotransferase (ALT/SGPT) 62 U/L H 01/28/182099 Prothromb Time International Ratio 1.20 12/29/17 1236 No growth from blood cultures from 01/29 x2. Imaging 01/29/18 Venogram - 1. No sonographic evidence DVT involving the right upper extremity veins 01/28/18 CXR - There is now evidence of parenchymal consolidation and volume loss in the right lower lobe. A moderate-sized right pleural effusion has developed. 01/28/[address] - No evidence of acute intracranial abnormality by CT. 01/28/18 Venogram - No evidence of deep vein thrombosis in either lower extremity. Condition: Improved Discharge: Home Discharge Instructions Home Meds Active Scripts Cefdinir 300 Mg Cap (OMNICEF 300 MG CAP (OR EQUIV)) 300 Mg Cap, 300 MG PO BID, # 10 CAP Prov:CHRIS BARNES MD 01/30/18 Azithromycin (ZITHROMAX) 250 Mg Tablet, 1 TAB PO HS, #3 TAB Prov:CHRIS BARNES MD 01/30/18 Reported Medications Prochlorperazine Maleate (Compazine) 10 Mg Tablet, PO Q8H Y for NAUSEA/VOMITING 01/29/18 Hydroxyzine Hcl (HYDROXYZINE HCL) 25 Mg Tablet, 25 MG PO Take 25 mg by mouth 3 times daily as needed for itching or nausea 01/28/18 Acetaminophen (TYLENOL) 325 Mg Tablet, 325 MG PO, TAB 01/28/18 Hydrocodone Bit/Acetaminophen (HYDROCODON-ACETAMINOPHEN 5-325) 1 Each Tablet, 1 EACH PO Q6H, TAB 01/28/18 Ondansetron (ZOFRAN ODT) 4 Mg Tab.rapdis, 8 MG PO Q12H, TAB.ALYSHA 01/28/18 Metoprolol Succinate (METOPROLOL SUCCINATE) 25 Mg Tab.er.24h, 1 TAB PO QDAY, TAB Take 0.5 tablet by mouth 01/28/18 Discontinued Reported Medications Naproxen Sodium (ALEVE) 220 Mg Capsule, 220 MG PO TID, CAPSULE 440 mg by mouth daily as needed for pain 01/28/18 Lorazepam (LORAZEPAM) 0.5 Mg Tablet, 0.5 MG PO PRN 01/28/18 Lidocaine Hcl (LIDOCAINE) 35.44 Gm Oint, 35.44 GM TP 01/28/18 Dexamethasone 4 Mg Tab (DEXAMETHASONE 4 MG TAB) 4 Mg Tab, 4 MG PO PRN, TAB Take 2 tabs by mouth daily for nausea 01/28/18 Lisinopril (LISINOPRIL) 5 Mg Tablet, 2.5 MG PO QDAY, TAB 01/28/18 Prochlorperazine Maleate (COMPAZINE) 25 Mg Supp.rect, 10 MG PO PRN 01/28/18 Mv-Mn/Fa/Lycopene/Lut/Hb#178 (SHELBY MULTIVIT FOR MEN CAPLET) 1 Each Tablet, 1 EACH PO DAILY 12/24/17 Discontinued Scripts Hydroxyzine Hcl (HYDROXYZINE HCL) 25 Mg Tablet, 25 MG PO TID Y for PRn, #60 TAB 0 Refills Prov:HERACLIO LORA MD 12/25/17 Diet: Fluid Restricted, No Added Salt (MEJIA) Activity: As Tolerated Special Instructions: Go to the ER for bleeding, fevers, chills, worsening SOB, or light headedness. Follow up with your Oncologist on 02/02, as scheduled. Get a CMP and CBC at the Cancer Center before the visit. Weigh yourself daily and call your Physician Asst for an increase of 5 pounds from baseline. Follow the diet and fluid restrictions per your Physician Asst. Follow up with you Physician Asst, as scheduled, and discuss restarting lisinopril. Follow up with your PCP in a couple weeks and schedule a follow up CXR in about 6 weeks. Copies to: HERACLIO LORA MD; YOSI ARIZMENDI MD; RACHELLE HEATH MD Venous Thromboembolism Antithrombotics Is Pt On Any Antithrombotics?: No CHRIS BARNES MD Jan 30, 2018 14:25
[2018-01-30] MEDS ORDERED: HEPARIN FLSH (PORT) 500 UN/5ML IVP ONE (15:45)
[2018-01-30 16:15] VITALS: BP 103/60
[2018-02-02] MEDS ORDERED: FURO20TA19 PO (15:19)
[2018-02-02] MEDS ORDERED: POTA-28 PO (15:19)
== END 2018-01-30 17:30 | disposition home or self-care (01) | DRG 194 ==
LOC: ER 21:00 → MED 01-29 01:04
PROVIDERS: ADMIT Family Medicine; ATTEND Family Medicine
DX: J18.1 Lobar pneumonia, unspecified organism (principal); I50.22 Chronic systolic (congestive) heart failure; C81.90 Hodgkin lymphoma, unspecified, unspecified site; D64.81 Anemia due to antineoplastic chemotherapy; R60.0 Localized edema; T45.1X5A Adverse effect of antineoplastic and immunosuppressive drugs, initial encounter; D63.0 Anemia in neoplastic disease; Z90.49 Acquired absence of other specified parts of digestive tract; Z87.891 Personal history of nicotine dependence
CPT/HCPCS: 36415; 70450; 71046; 82040; 82247; 82310; 82374; 82435; 82565; 82947; 83605; 84075; 84132; 84155; 84295; 84450; 84460; 84520; 85025; 86850; 86900; 86901; 86920; 87040; 93970; 96360; 99285; J0456; J0696; J1642; J1650; J7030; J7050

== ENCOUNTER → 2018-01-28 | Outpatient (CLI) | payer BC, OTHER ==
[~2018-01-28] MED LIST changes: +ACET-1966 PO; +AZIT-1 PO; +CEF300 PO; +DEX4 PO; +HYDR-385 PO; +LIDO5T TP; +LISI5TAB25 PO; +LORA-630 PO; +METO25TA23 PO; +NAPR220C12 PO; +ONDA4TAB PO; +PEGFILGRASTIM 6 MG/0.6 ML SYR SUBQ ONE; +PROC10TA4 PO; +PROC25SU3 PO
== END ==
LOC: SPU 07:39
PROVIDERS: ATTEND Internal Medicine
DX: C81.18 Nodular sclerosis Hodgkin lymphoma, lymph nodes of multiple sites (principal)
CPT/HCPCS: 96372; J2505

== ENCOUNTER → 2018-02-11 | Outpatient (CLI) | payer BC, OTHER ==
[2018-01-29 09:30] VITALS: BMI 27.7
[~2018-02-11] MED LIST changes: +ACET-1966 PO; +AZIT-1 PO; +CEF300 PO; +DEX4 PO; +FURO20TA19 PO; +HYDR-385 PO; +LIDO5T TP; +LISI5TAB25 PO; +LORA-630 PO; +METO25TA23 PO; +NAPR220C12 PO; +ONDA4TAB PO; +PEGFILGRASTIM 6 MG/0.6 ML SYR SUBQ ONE; +POTA-28 PO; +PROC10TA4 PO; +PROC25SU3 PO
[2018-02-11 15:37] VITALS: BP 108/68
== END ==
LOC: SPU 07:35
PROVIDERS: ATTEND Internal Medicine
DX: C81.90 Hodgkin lymphoma, unspecified, unspecified site (principal)
CPT/HCPCS: 96372; J2505

== ENCOUNTER 2018-04-14 09:31 | Outpatient (RCR) | payer BC ==
[2018-01-19 16:09] VITALS: BP 101/63
[2018-01-27 10:14] VITALS: BP 89/58
[2018-01-27] MEDS: LIDOCAINE/SOD BICARB 8.4% SYR ID PRN (10:23)
[2018-01-27] MEDS: NS(*) 0.9% 500 ML BAG 500 ML IV PRN (10:24)
[2018-01-27] MEDS: DEXAMETHASONE SOD PHOS 10MG/ML IVP PRN (10:36)
[2018-01-27 13:14] VITALS: BP 87/50
[2018-01-27] MEDS: HEPARIN FLSH (PORT) 500 UN/5ML IVP PRN (13:17)
--- NOTE | 2018-01-28 15:18 | Pharmacy Note ---
Pharmacy Note Date Provider Notified: Jan 27, 2018 Note: Chemotherapy Education Note: Regimen: Brentuximab + Vinblastine/Dacarbazine Chemoeducation Date: 01/27/18 Chemotherapy education on Brentuximab was completed on 01/27/18 and included discussion of toxicities, signs and symptoms of concern, administration and purpose/mechanism of action. Of note, patient received Cycle 1 Day 1 - vinblastine and dacarbazine as an inpatient at [facility] on 01/25/18. Initial chemotherapy education on vinblastine and dacarbazine was completed at [facility]. During education, all three drugs were reviewed for completeness. Brentuximab - toxicities discussed were the risk for PML (mood changes, memory impairment, decreased cognition, motor incoordination, changes in vision or speech), edema, neuropathy, rash, myalgias, bone marrow suppression (anemia, thrombocytopenia, neutropenia and risks associated with each of these), increased risk of pancreatitis, hepatotoxicity, infection, and pulmonary toxicity. Also discussed risk of an infusion reaction while receiving brentuximab. This list is not all inclusive, but represents the most common or serious toxicities. Pt has a history of decreased ejection fraction and poor pulmonary function which will be closely monitored during treatment. Pt is set up to follow with cardiology. Vinblastine- toxicities discussed were bone marrow suppression, extravasation, stomatitis, neurotoxicity/neuropathy and possibly constipation, and pulmonary toxicity. Vinblastine is a vesicant and will be administered through a port. This list is not all inclusive, but represents the most common or serious toxicities. Dacarbazine - toxicities discussed were bone marrow suppression, extravasation, alopecia, N/V, and hepatotoxicity. This list is not all inclusive, but represents the most common or serious toxicities. Discussed symptom management related to nausea and vomiting, avoiding sick contacts, scheduling, and importance of close follow up. Reviewed consent and toxicities discussed. Patient signed the consent for treatment and it will be placed in the patients chart. Questions were answered to their satisfaction. Discussed the ability to call with any future questions. Amanda Chinchilla, PharmD, BCOP AMANDA CHINCHILLA Jan 28, 2018 14:44
[2018-01-29 09:30] VITALS: Ht 173.1 cm; Wt 80.8 kg
[2018-02-02 14:02] VITALS: BP 104/66
[2018-02-02 14:14] LABS: PLATELET COUNT, AUTOMATED 288 K/uL (150-450)
--- NOTE | 2018-02-04 04:33 | [facility] ONCOLOGY NOTE ---
DATE OF VISIT: February 02, 2018 CHIEF COMPLAINT/REASON FOR VISIT Mr. Payton is a 57-year-old gentleman with classical nodular sclerosis Hodgkin lymphoma on treatment with brentuximab, vinblastine and dacarbazine here for followup during cycle one. HISTORY OF PRESENT ILLNESS Mr. Payton returns. Please see my note from January 19, 2018 as well as the notes from [place] for more details. In short, Mr. Payton tolerated his first cycle well, but then developed a pneumonia. He was in the hospital over this weekend, and now feels much better. He continues antibiotics. His labs actually look quite well today, and he did receive Neulasta. We are utilizing brentuximab instead of bleomycin given his heart history, and we are not using anthracyclines, given the suppressed EF. he has an appointment in followup with Dr. Harry in cardiology on February 17. We are hopeful that he can complete antibiotics and then stay on scheduled on approximately February 11 for cycle one, day 15. I believe he is on track for that currently. PAST MEDICAL HISTORY 1. Bonilla's palsy. 2. History of hernia repair. 3. Cholecystectomy. 4. Nodular sclerosis, classical Hodgkin lymphoma, with involvement of the liver , stage IV. Plan for 12 doses of chemotherapy. Avoiding bleomycin due to his heart history as well as avoiding anthracyclines due to his suppressed EF. FAMILY HISTORY Cancer in the sister. SOCIAL HISTORY Patient is . He has presented with his . Former smoker, quit in 1977. REVIEW OF SYSTEMS CONSTITUTIONAL: No fevers, chills, significant weight change. HEENT: No headache or vision changes. CARDIOVASCULAR: No chest pain, dyspnea on exertion or edema. RESPIRATORY: No shortness of breath, wheeze, cough currently. He is getting over pneumonia and feels that his symptoms are much improved. ENDOCRINE: No heat or cold intolerance. PSYCHIATRIC: No anxiety or depression. SKIN: No concerning findings. Remainder of 14-point review of systems is otherwise negative. PHYSICAL EXAMINATION VITAL SIGNS: Blood pressure 104/66, pulse 97, respiratory rate 16, temperature 99.8 Fahrenheit, oxygen saturation 92% on room air. GENERAL: Stable condition, resting comfortably in the chair. HEENT: Normocephalic, atraumatic. LUNGS: Some diminished sounds at the right base with some faint crackles at the left base. He is getting over this pneumonia. CARDIOVASCULAR: Regular rate and rhythm. Low blood pressure. I do recommend that he continue the metoprolol, given his suppressed EF. The lisinopril is currently being held. ABDOMEN: Soft, nontender. LYMPHATIC: The patient notes that his lymph nodes have resolved, and his night sweats have resolved. Full physical exam deferred today due to amount of time spent in counseling and coordination of care. IMPRESSION AND PLAN Mr. Payton is a pleasant 57-year-old gentleman with the followin. Stage BRANDT classical Hodgkin lymphoma, nodular sclerosis subtype. He is not a candidate for an anthracycline, and we are avoiding use of bleomycin given his cardiopulmonary status. Plan for 12 doses of brentuximab, vinblastine and dacarbazine. This first cycle was complicated with a pneumonia, which is not an uncommon complication. He is doing better, though, and so we will continue therapy on time. We will utilize Neulasta with each cycle if need be. If his labs look well, we may give it monthly, though. Given his labs today, I anticipate though we do plan to utilize Neulasta again with cycle one, day 15. 2. Congestive heart failure. The etiology for this is not completely clear. We would like to continue the beta sal, even though his blood pressure is low. He does have edema, and we need to utilize some Lasix. With the Lasix, I plan to use potassium. He has followup with cardiology in early February. We may resume the lisinopril 2.5 mg in the future, but given the borderline low blood pressure, I am holding it at this time. I answered all of their many questions today. Billing: Return visit level 5, high risk, high complexity. Total time 45 minutes, counseling time 30. MTDD
--- NOTE | 2018-02-07 16:57 | ONCOLOGY FOLLOW UP NOTE ---
EVENT DATE: January 19, 2018 CHIEF COMPLAINT/REASON FOR VISIT Mr. Payton is a 57-year-old gentleman with classical nodular sclerosis, Hodgkin 's lymphoma on treatment with brentuximab, vinblastine and dacarbazine, here for followup. HISTORY OF PRESENT ILLNESS Mr. Payton returns. Please see my notes from [place] for additional details. He is starting brentuximab, vinblastine and dacarbazine in the near future, as he is not a candidate for aggressive chemotherapy. His ejection fraction is suppressed and we do not have a clear etiology for this. He is following with Dr. Harry in Cardiology to investigate this further. We cannot give him anthracycline as a result. He appears quite unwell and I would like him to be admitted to the hospital to pursue his first cycle of therapy. I am hopeful that we will be able to give his second through twelfth doses of therapy outside of the hospital. PAST MEDICAL HISTORY 1. Bonilla's palsy. 2. History of hernia repair. 3. Cholecystectomy. 4. Nodular sclerosis. 5. Classical Hodgkin's lymphoma with involvement of the liver stage IV. Avoiding bleomycin due to his heart history and avoiding anthracyclines due to his suppressed EF. Utilizing brentuximab, vinblastine and dacarbazine. FAMILY HISTORY Cancer in his sister. SOCIAL HISTORY Patient is , has presented again with his . Former smoker. REVIEW OF SYSTEMS CONSTITUTIONAL: No fevers, chills, weight change. HEENT: No headache or vision changes. CARDIOVASCULAR: No chest pain, dyspnea on exertion or edema. RESPIRATORY: No shortness of breath, wheeze or cough. ENDOCRINE: No heat or cold intolerance. PSYCHIATRIC: No anxiety or depression. SKIN: No concerning rashes or lesions. MUSCULOSKELETAL: Generalized weakness and fatigue. The remainder of the 14-point review of systems is otherwise negative. PHYSICAL EXAMINATION GENERAL: ECOG performance status of 2 currently. He appears uncomfortable in the chair, ill-appearing gentleman. HEENT: Normocephalic, atraumatic. CARDIOVASCULAR: Regular rate and rhythm. LUNGS: Clear at this time. ABDOMEN: Soft. Full physical exam deferred today to amount of time spent in counseling and coordination of care. IMPRESSION AND PLAN Mr. Payton is a pleasant 57-year-old gentleman with the following: Stage BRANDT classical Hodgkin's lymphoma nodular sclerosis subtype with liver involvement. Plan to get him to the inpatient setting to investigate his heart and begin treatment very soon. We may need to avoid anthracyclines due to his suppressed EF and avoid use of bleomycin given his cardiopulmonary status. I do not have a good etiology for his CHF. I answered all of his questions today, coordinated his admission. Billing: High risk, high complexity. Return visit level 5. Total time 60 minutes, counseling time 45. MTDD
[2018-02-10 09:27] VITALS: BP 115/72
[2018-02-10] MEDS: ACETAMINOPHEN 325 MG TAB PO PRN (10:44)
[2018-02-10] MEDS: diphenhydrAMINE 25 MG CAP PO PRN (10:45)
[2018-02-10] MEDS: DEXAMETHASONE SOD PHOS 10MG/ML IVP PRN (10:46)
[2018-02-10] MEDS: PALONOSETRON 0.25 MG/5 ML VIAL IVP PRN (10:46)
[2018-02-10] MEDS: FOSAPREPITANT DIM 150 MG/5 ML 150 MG in NS(*) 0.9% 250 ML BAG 245 ML IVPB PRN (11:26)
[2018-02-10] MEDS: HEPARIN FLSH (PORT) 500 UN/5ML IVP PRN (14:31)
[2018-02-10 14:34] VITALS: BP 111/67
[2018-02-16 09:53] LABS: PLATELET COUNT, AUTOMATED 116 K/uL (150-450)
[2018-02-16 10:00] VITALS: BP 109/71
[2018-02-16] MEDS: NS(*) 0.9% 500 ML BAG 500 ML IV PRN (11:00)
[2018-02-16] MEDS: HEPARIN FLSH (PORT) 500 UN/5ML IVP PRN (12:01)
--- NOTE | 2018-02-17 17:23 | ONCOLOGY FOLLOW UP NOTE ---
EVENT DATE: February 16, 2018 CHIEF COMPLAINT/REASON FOR VISIT Mr. Payton is a pleasant 57-year-old gentleman with classic nodular sclerosing Hodgkin lymphoma, on treatment with brentuximab, vinblastine and dacarbazine, here for followup. HISTORY OF PRESENT ILLNESS Mr. Payton returns. Please see my notes from [place] for more details. He has received two doses of brentuximab, vinblastine and dacarbazine. He is not a candidate for anthracycline or bleomycin due to significant cardiopulmonary issues. He follows with (39) in Cardiology. His ejection fraction is suppressed and we do not have a good etiology for this. The patient has been receiving Neulasta, although it is questionable about whether he needs it, as his saida has been brief. We have had times of significantly elevated white blood counts as well. He complains of continued weight loss, extreme fatigue on days three, four, five and six. He receives the Neulasta on Friday and then has profound fatigue that following weekend. No neuropathy of concern. He is working with Nutrition and is eating well. PAST MEDICAL HISTORY 1. Bonilla's palsy. 2. History of hernia repair. 3. Cholecystectomy. 4. Nodular sclerosis. 5. Classical Hodgkin's lymphoma with involvement of the liver stage IV. Avoiding bleomycin due to his heart history and avoiding anthracyclines due to his suppressed EF. Utilizing brentuximab, vinblastine and dacarbazine. FAMILY HISTORY Cancer in his sister. SOCIAL HISTORY Patient is , has presented again with his . Former smoker. REVIEW OF SYSTEMS CONSTITUTIONAL: No fevers, chills, weight change. HEENT: No headache or vision changes. CARDIOVASCULAR: No chest pain, dyspnea on exertion or edema. RESPIRATORY: No shortness of breath, wheeze or cough. ENDOCRINE: No heat or cold intolerance. PSYCHIATRIC: No anxiety or depression. SKIN: No concerning rashes or lesions. MUSCULOSKELETAL: Generalized weakness and fatigue. HEMATOLOGIC/LYMPHATIC: No concerning lumps or bumps. No bleeding. GASTROINTESTINAL: No nausea, vomiting. NEUROLOGIC: No numbness. PHYSICAL EXAMINATION VITAL SIGNS: Blood pressure 109/77, pulse 116, respiratory rate 16, temperature 98.0 Fahrenheit, oxygen saturation 95% on room air. Weight 63.9 kg. Pain 6/10, fatigue 6/10. GENERAL: In stable condition. ECOG performance status of 2. Resting comfortably in the chair. HEENT: Normocephalic, atraumatic. CARDIOVASCULAR: Tachycardic. His blood pressure is low. No edema. The patient has had edema and hypertension previously. I believe he is volume depleted now. He has stopped the Lasix appropriately. Given this acute change , I am hopeful that it is a sign that we have treated his cancer adequately and we are starting to get better fluid management. LUNGS: Clear. ABDOMEN: Soft. EXTREMITIES: No clubbing, cyanosis or edema. SKIN: Dry. Remainder of physical exam unremarkable. IMPRESSION AND PLAN Mr. Payton is a pleasant 57-year-old gentleman with the following: Stage BRANDT classical Hodgkin lymphoma nodular sclerosis subtype with liver involvement. I am hopeful that he is responding, as his fluid management has changed significantly. We will continue the brentuximab, vinblastine and dacarbazine, but need to reduce the dose by 20%. He is having significant pains with Neulasta and we are not seeing significant nadirs with his chemotherapy treatment. Thus we will stop the Neulasta. We will get labs every week and may need to add antibiotics if he has significant neutropenia. Continue to avoid athracycline due to the suppressed ejection fraction as well as avoid bleomycin given his cardiopulmonary status. We do not have a good etiology for his CHF, but I am concerned it may be related to his lymphoma. I answered all of his questions today. We will see him with each cycle. We will get the PET scan after four doses to make sure we are moving in the right direction. Billing: High risk, high complexity. Return visit level 5. Total time 45 minutes, counseling time 30. MTDD
[2018-02-24 09:47] VITALS: BP 124/74
[2018-02-24] MEDS: LIDOCAINE/SOD BICARB 8.4% SYR ID PRN (09:51)
[2018-02-24] MEDS: NS(*) 0.9% 500 ML BAG 500 ML IV PRN (09:52)
[2018-02-24] MEDS: HEPARIN FLSH (PORT) 500 UN/5ML IVP PRN (09:53)
[2018-02-24] MEDS: FOSAPREPITANT DIM 150 MG/5 ML 150 MG in NS(*) 0.9% 250 ML BAG 245 ML IVPB PRN (10:00)
[2018-02-24] MEDS: PALONOSETRON 0.25 MG/5 ML VIAL IVP PRN (10:27)
[2018-02-24] MEDS: DEXAMETHASONE SOD PHOS 10MG/ML IVP PRN (10:27)
[2018-02-24] MEDS: diphenhydrAMINE 25 MG CAP PO PRN (10:27)
[2018-02-24] MEDS: ACETAMINOPHEN 325 MG TAB PO PRN (10:27)
[2018-03-02 08:08] VITALS: BP 107/64
[2018-03-02 08:14] LABS: PLATELET COUNT, AUTOMATED 250 K/uL (150-450)
--- NOTE | 2018-03-03 16:59 | ONCOLOGY FOLLOW UP NOTE ---
EVENT DATE: March 02, 2018 CHIEF COMPLAINT/REASON FOR VISIT Mr. Payton is a pleasant 57-year-old gentleman with classic nodular sclerosing Hodgkin's lymphoma on treatment with brentuximab, vinblastine and dacarbazine, here for followup during cycle three of 12. HISTORY OF PRESENT ILLNESS Mr. Payton returns. Please see my consultation notes from [place] in the [employer] system for more details. He has received three doses of brentuximab, vinblastine and dacarbazine. He is not a candidate for anthracycline or bleomycin due to significant cardiopulmonary issues. He follows with Dr. Harry. We had held his lisinopril due to dizziness, but I completely agree that he needs to be on it, perhaps at a lower dose. He is not having major dizziness since restarting it, but is having slight dizziness. I encouraged him to continue it, but if it worsens he will need to follow up with Cardiology. The patient is now off of Neulasta as he has not had significant nadirs with his treatment. He is tolerating this adjustment well. Advised him to watch closely. If he gets any signs of infection we will need to put him on antibiotics. This included fever alone. He continues to have some weight loss. His weight fluctuates between cycles. He is working to maintain his weight and his strength, but it is affecting him. No neuropathy at all he states. Grade 1 fatigue. No significant GI issues. He does note some urinary frequency, but no burning, hematuria or other issues. I do believe this is due to the fluid that we give him with treatment, but he as a few days of nocturia and currently it is down to one to two per day. PAST MEDICAL HISTORY 1. Bonilla's palsy. 2. History of hernia repair. 3. Cholecystectomy. 4. Nodular sclerosis. 5. Classical Hodgkin's lymphoma with involvement of the liver stage IV. Avoiding bleomycin due to his heart history and avoiding anthracyclines due to his suppressed EF. Utilizing brentuximab, vinblastine and dacarbazine. FAMILY HISTORY Cancer in his sister. SOCIAL HISTORY Patient is , has presented again with his . Former smoker. REVIEW OF SYSTEMS CONSTITUTIONAL: No fevers, chills, weight change. HEENT: No headache or vision changes. CARDIOVASCULAR: No chest pain, dyspnea on exertion or edema. RESPIRATORY: No shortness of breath, wheeze or cough. ENDOCRINE: No heat or cold intolerance. PSYCHIATRIC: No anxiety or depression. SKIN: No concerning rashes or lesions. MUSCULOSKELETAL: Generalized weakness and fatigue. HEMATOLOGIC/LYMPHATIC: No concerning lumps or bumps. No bleeding. GASTROINTESTINAL: No nausea, vomiting. NEUROLOGIC: No numbness. PHYSICAL EXAMINATION VITAL SIGNS: Blood pressure 107/64, pulse 96, respiratory rate 16, temperature 97 Fahrenheit, oxygen saturation 98% on room air. Pain 0/10, fatigue 5/10. Low fall risk. GENERAL: In stable condition. Resting comfortably in the chair. ECOG performance status of 1. He is improved with therapy. HEENT: Normocephalic, atraumatic. CARDIOVASCULAR: Regular rate and rhythm. No tachycardia. No extra sounds. Normal S1, S2. No murmurs. LUNGS: Clear to auscultation bilaterally. ABDOMEN: Soft, nontender. No masses. His liver is not tender. EXTREMITIES: No clubbing, cyanosis or edema. SKIN: No bruising. It is dry. PSYCHIATRIC: Normal mood and affect. Remainder of physical exam unremarkable. IMPRESSION AND PLAN Mr. Payton is a pleasant 57-year-old gentleman with the following: Stage BRANDT classic Hodgkin lymphoma nodular sclerosing subtype with liver involvement. I strongly believe that he is responding given the improvement of his liver numbers, particularly the alk phos. It peaked in the 800s and it is now approximately 280. We are getting a PET scan after four doses to make sure we are moving on the right track, as we are using an atypical regimen due to his cardiopulmonary history. We did make a 20% reduction of the brentuximab, vinblastine and dacarbazine due to excess side effects starting with cycle three of 12. We have stopped the Neulasta and we will watch for any significant issues where we may need to add antibiotics. We do not have a good etiology for his CHF and it may be related to his lymphoma considering he has organ involvement. I answered all of his questions today. We will see him with each cycle. High risk, high complexity. Billing: Return visit level 4. Total time 30 minutes, counseling time 20. MTDD
[2018-03-10] MEDS: NS(*) 0.9% 500 ML BAG 500 ML IV PRN (10:08)
[2018-03-10] MEDS: LIDOCAINE/SOD BICARB 8.4% SYR ID PRN (10:08)
[2018-03-10] MEDS: DEXAMETHASONE SOD PHOS 10MG/ML IVP PRN (10:09)
[2018-03-10] MEDS: PALONOSETRON 0.25 MG/5 ML VIAL IVP PRN (10:09)
[2018-03-10] MEDS: diphenhydrAMINE 25 MG CAP PO PRN (10:10)
[2018-03-10] MEDS: ACETAMINOPHEN 325 MG TAB PO PRN (10:10)
[2018-03-10] MEDS: FOSAPREPITANT DIM 150 MG/5 ML 150 MG in NS(*) 0.9% 250 ML BAG 245 ML IVPB PRN (11:06)
--- NOTE | 2018-03-10 12:32 | Medical Nutrition Therapy ---
Nutrition Anthropometrics Height (Inches): 68.15 Height (Calculated Centimeters: 173.1010 Weight (Pounds): 168 (pt states his usual wt 4months ago was 189-195lb) BMI Calculated: 27.67 Hx Weight Loss: Yes (pt states his weight has been fluctuating between 150-178 over the past couple months) Hx Weight Gain: Yes Dietary Referral Nutrition/Food History > 10 lb Wt Loss/1 Month Improving (pt states that his appetite and intake has been good the past month ) Exercise: Yes (PT is working with patient on strengthening ) Nutritional Diagnosis Nutritional Risk Acuity 3: Cancer Nutritional Acuity: 3-Mild Nutrition Diagnosis: Increased Nutrient Needs Nutrition Etiology: Physiological Causes Nutrition Problem/Etiology/Sym: Patient receiving chemotherapy for hodgkins lymphoma Energy Requirement: 2450 Protein Requirement: 91 Fluid Requirement: 2100 Nutrition Intervention: Encourage intake Nutritional Education Nutrition Education Topic: Other (nutrition during cancer treatment ) Learning Readiness: Interested Teaching Methods: Discussion, Handout Response to Teaching: Verbalize understanding Teaching Recipient: Patient Nutrition Counseling: Provided information on nutrition during cancer treatment Nutrition Monitoring & Eval Nutrition Monitoring: I will monitor nutrition status and nutrition impact symptoms and provide additional information as needed RD Patient Assessment Time: [address] Assessment Type: RD Education Patient Nutrition Acuity: 3-Mild Follow Up Date: Mar 24, 2018 Nutritional Comment: 03/10/2018 - provided 15 min of MNT education CHARLES DIXON RDN, MELISA March 10, 2018 12:31
[2018-03-10] MEDS: HEPARIN FLSH (PORT) 500 UN/5ML IVP PRN (13:15)
[2018-03-10 13:45] VITALS: BP 100/62
[2018-03-17 13:13] VITALS: BP 117/78
[2018-03-17 13:15] LABS: PLATELET COUNT, AUTOMATED 290 K/uL (150-450)
[2018-03-18 13:20] VITALS: BP 122/72
--- NOTE | 2018-03-19 15:07 | ONCOLOGY FOLLOW UP NOTE ---
EVENT DATE: March 18, 2018 CHIEF COMPLAINT/REASON FOR VISIT Mr. Payton is a very pleasant 57-year-old gentleman with classic nodular sclerosing Hodgkin lymphoma on treatment with brentuximab, vinblastine, dacarbazine, here for followup after cycle four of 12. He is due for his next dose on March 24, 2018. HISTORY OF PRESENT ILLNESS Mr. Payton returns. Please see my consultation notes from [place] in the [employer] system for more details. He has now received four doses of brentuximab, vinblastine and dacarbazine. He was not a candidate for anthracycline or bleomycin due to his significant cardiopulmonary issues. He follows with Dr. Harry. He is back on the low dose lisinopril 2.9 mg and is doing well. No significant dizziness at this lower dose. Would recommend that he continue a beta sal and an PHILIP inhibitor given his cardiovascular issues, but need to avoid the dizziness as well. He is doing quite well. His liver numbers continue to improve, which I believe is duly related to his lymphoma. This is a very atypical presentation for Hodgkin lymphoma. He is getting stronger and feels much better, which are also encouraging signs. He no longer has significant edema and we are backing off the Lasix. We can stop the potassium with that as well. Ready to proceed with therapy. PAST MEDICAL HISTORY 1. Bonilla's palsy. 2. History of hernia repair. 3. Cholecystectomy. 4. Nodular sclerosis. 5. Classical Hodgkin's lymphoma with involvement of the liver stage IV. Avoiding bleomycin due to his heart history and avoiding anthracyclines due to his suppressed EF. Utilizing brentuximab, vinblastine and dacarbazine. FAMILY HISTORY Cancer in his sister. SOCIAL HISTORY Patient is , has presented again with his . Former smoker. REVIEW OF SYSTEMS CONSTITUTIONAL: No fevers, chills, weight change. HEENT: No headache or vision changes. CARDIOVASCULAR: No chest pain, dyspnea on exertion or edema. RESPIRATORY: No shortness of breath, wheeze or cough. ENDOCRINE: No heat or cold intolerance. PSYCHIATRIC: No anxiety or depression. SKIN: No concerning rashes or lesions. MUSCULOSKELETAL: Generalized weakness and fatigue. HEMATOLOGIC/LYMPHATIC: No concerning lumps or bumps. No bleeding. GASTROINTESTINAL: No nausea, vomiting. NEUROLOGIC: No numbness. PHYSICAL EXAMINATION VITAL SIGNS: Blood pressure 122/72, pulse 98, respiratory rate 16, temperature not done, oxygen saturation 93% on room air. Weight 78.8 kg. Pain 0/10, fatigue 0/10. GENERAL: Stable condition, resting comfortably in the chair. HEENT: Normocephalic, atraumatic. CARDIOVASCULAR: Regular rate and rhythm. LUNGS: Clear. ABDOMEN: Soft, nontender. EXTREMITIES: No clubbing, cyanosis or edema. SKIN: No bruising. PSYCHIATRIC: Normal mood and affect. MUSCULOSKELETAL: His strength is improving. Remainder of physical exam unremarkable. IMPRESSION AND PLAN Mr. Payton is a very pleasant 57-year-old gentleman with the following: Stage BRANDT classic Hodgkin lymphoma nodular sclerosing subtype with liver involvement. His alk phos continues to improve. It is down from 800 to approximately 180. It is not yet normal, but it is still improving. We are going to get a PET scan before my next visit with him in March near the [facility] point of his therapy. We did require a 20% dose reduction with his chemotherapy due to side effects starting with cycle three of 12. We also stopped the Neulasta as we were having significant issues with side effects with that as well. We do not have a good etiology for his CHF and it may be related to his lymphoma considering he has other organ involvement and the liver. I answered all of his questions. He continues to improve. Extremely high high risk, high complexity. Billing: Return visit level 4. Total time 30 minutes, counseling time 20. MTDD
[2018-03-24 09:06] VITALS: BP 119/79
[2018-03-24] MEDS: LIDOCAINE/SOD BICARB 8.4% SYR ID PRN (09:13)
[2018-03-24] MEDS: NS(*) 0.9% 500 ML BAG 500 ML IV PRN (09:13)
[2018-03-24] MEDS: ACETAMINOPHEN 325 MG TAB PO PRN (10:25)
[2018-03-24] MEDS: diphenhydrAMINE 25 MG CAP PO PRN (10:27)
[2018-03-24] MEDS: DEXAMETHASONE SOD PHOS 10MG/ML IVP PRN (10:27)
[2018-03-24] MEDS: PALONOSETRON 0.25 MG/5 ML VIAL IVP PRN (10:28)
[2018-03-24] MEDS: FOSAPREPITANT DIM 150 MG/5 ML 150 MG in NS(*) 0.9% 250 ML BAG 245 ML IVPB PRN (10:54)
[2018-03-31 09:09] VITALS: BP 102/59
[2018-03-31 09:18] LABS: PLATELET COUNT, AUTOMATED 153 K/uL (150-450)
[2018-04-07 08:55] VITALS: BP 108/82
[2018-04-07] MEDS: NS(*) 0.9% 500 ML BAG 500 ML IV PRN (09:04)
[2018-04-07] MEDS: LIDOCAINE/SOD BICARB 8.4% SYR ID PRN (09:04)
[2018-04-07] MEDS: diphenhydrAMINE 25 MG CAP PO PRN (10:10)
[2018-04-07] MEDS: ACETAMINOPHEN 325 MG TAB PO PRN (10:10)
[2018-04-07] MEDS: DEXAMETHASONE SOD PHOS 10MG/ML IVP PRN (10:12)
[2018-04-07] MEDS: PALONOSETRON 0.25 MG/5 ML VIAL IVP PRN (10:12)
[2018-04-07] MEDS: FOSAPREPITANT DIM 150 MG/5 ML 150 MG in NS(*) 0.9% 250 ML BAG 245 ML IVPB PRN (10:30)
[2018-04-07 13:42] VITALS: BP 108/82
[2018-04-07] MEDS: HEPARIN FLSH (PORT) 500 UN/5ML IVP PRN (13:43)
[2018-04-08 15:33] VITALS: BP 109/64
--- NOTE | 2018-04-09 18:36 | ONCOLOGY FOLLOW UP NOTE ---
EVENT DATE: April 08, 2018 CHIEF COMPLAINT/REASON FOR VISIT Mr. Payton is a pleasant 57-year-old gentleman with classic nodular sclerosing Hodgkin's lymphoma on treatment with brentuximab, vinblastine and dacarbazine, here for followup during the first half of treatment. HISTORY OF PRESENT ILLNESS Mr. Payton returns. Please see my consultation notes from [place] for more details. He is on an atypical regimen, as he was not a candidate for for anthracycline or bleomycin due to heart failure and significant cardiopulmonary issues at diagnosis. He follows with Dr. Harry in Cardiology. He is doing much better on a beta sal and PHILIP inhibitor, and I anticipate that his heart is improving. We would like to get an echocardiogram as it has been approximately three months since his last one. He is doing quite well. His numbers improved including great improvement in his liver numbers. I believe that this was due to his lymphoma. This is a very atypical presentation for Hodgkin's to have both heart failure and liver involvement. He is getting stronger, and for example was doing weight training today as well as riding a bike with his grandson today. He was transferred by ambulance at diagnosis to [facility] due to his inability to walk at diagnosis. He has improved quite a bit. PAST MEDICAL HISTORY 1. Bonilla's palsy. 2. History of hernia repair. 3. Cholecystectomy. 4. Nodular sclerosis. 5. Classical Hodgkin's lymphoma with involvement of the liver stage IV. Avoiding bleomycin due to his heart history and avoiding anthracyclines due to his suppressed EF. Utilizing brentuximab, vinblastine and dacarbazine. FAMILY HISTORY Cancer in his sister. SOCIAL HISTORY Patient is , has presented again with his . Former smoker. REVIEW OF SYSTEMS CONSTITUTIONAL: No fevers, chills, weight change. HEENT: No headache or vision changes. CARDIOVASCULAR: No chest pain, dyspnea on exertion or edema. RESPIRATORY: No shortness of breath, wheeze or cough. ENDOCRINE: No heat or cold intolerance. PSYCHIATRIC: No anxiety or depression. SKIN: No concerning rashes or lesions. MUSCULOSKELETAL: Generalized weakness and fatigue. HEMATOLOGIC/LYMPHATIC: No concerning lumps or bumps. No bleeding. GASTROINTESTINAL: No nausea, vomiting. NEUROLOGIC: No numbness. PHYSICAL EXAMINATION VITAL SIGNS: Blood pressure 109/64, pulse 96, respiratory rate 16, temperature 97 Fahrenheit, oxygen saturation 92% on room air. Weight 80.8 kg. Pain 0/10, fatigue 0/10. He is actually starting to gain some weight now which is encouraging. GENERAL: Stable condition, resting comfortably in the chair. HEENT: Normocephalic, atraumatic. CARDIOVASCULAR: Regular rate and rhythm, which is encouraging. LUNGS: Clear to auscultation bilaterally. ABDOMEN: Soft, nontender. LYMPHATIC: No appreciable cervical, supraclavicular or axillary adenopathy. SKIN: No concerning bruising or rash. . PSYCHIATRIC: Normal mood and affect. MUSCULOSKELETAL: His strength is improving. Remainder of physical exam otherwise unremarkable. IMPRESSION AND PLAN Mr. Payton is a very pleasant 57-year-old gentleman with the following: Stage BRANDT classic Hodgkin lymphoma nodular sclerosing subtype with liver involvement. His alk phos continues to improve. It reached a peak at 800. It continues to improve. We are getting a PET scan at the half way point later in March. For scheduling purposes this was delayed.somewhat, but that is okay. We did require a 20% dose reduction due to side effects starting with cycle three, and we stopped Neulasta as we were having significant side effects from that as well. Overall he is very happy with how he is doing. We do not have a good etiology for his CHF and it may be related to his lymphoma considering he has other organ involvement and the liver. I answered all of his questions today. Billing: Return visit level 3. Total time 20 minutes, counseling time 15. MTDD
[~2018-04-14] VITALS: Ht 173.1 cm; Wt 80.8 kg
[~2018-04-14 09:31] MED LIST changes: +ALTEPLASE RECOMB 2 MG VIAL IVP PRN; +BRENTUXIMAB VEDOTIN IV ONE; +CHLO25TA19 PO; +DACARBAZINE IVPB ONE; +DEXTROSE 5%(*) 100 ML BAG 100 ML IVPB PRN; +FUROSEMIDE 20 MG/2 ML VIAL IVP ONE; +LEVO-85 PO; +NS 0.9% IV ONE; +NS 0.9% IVPB ONE; +NS(*) 0.9% 100 ML BAG 100 ML IVPB PRN; +PEGFILGRASTIM 6 MG/0.6 ML KIT SUBQ PRN; -PEGFILGRASTIM 6 MG/0.6 ML SYR SUBQ ONE; +PEGFILGRASTIM 6 MG/0.6 ML SYR SUBQ PRN; +SODIUM CHLORIDE 0.9% IVP ONE; +VINBLASTINE IVP ONE; +WATER FOR INJ,STERILE 20 ML IVP PRN
[2018-04-14 09:52] LABS: PLATELET COUNT, AUTOMATED 195 K/uL (150-450)
[2018-04-14 14:16] VITALS: BP 133/72
== END 2018-04-16 ==
LOC: SPU 09:31
PROVIDERS: ATTEND Internal Medicine
DX: Z51.11 Encounter for antineoplastic chemotherapy (principal); C81.18 Nodular sclerosis Hodgkin lymphoma, lymph nodes of multiple sites; I50.9 Heart failure, unspecified; R53.83 Other fatigue; Z87.891 Personal history of nicotine dependence
CPT/HCPCS: 36415; 83615; 84100; 84550; 85025; 85027; 96360; 96361; 96365; 96366; 96367; 96375; 96411; 96413; 96417; 99212; J1100; J1453; J1642; J1940; J2469; J7040; J7050; J9042; J9130; J9360; Q0163; 82040; 82247; 82310; 82374; 82435; 82565; 82947; 84075; 84132; 84155; 84295; 84450; 84460; 84520

== ENCOUNTER → 2018-04-15 | Outpatient (CLI) | payer BC ==
[2018-01-29 09:30] VITALS: BMI 27.7
[~2018-04-15] MED LIST changes: -ALTEPLASE RECOMB 2 MG VIAL IVP PRN; -BRENTUXIMAB VEDOTIN IV ONE; -DACARBAZINE IVPB ONE; -DEXTROSE 5%(*) 100 ML BAG 100 ML IVPB PRN; -FUROSEMIDE 20 MG/2 ML VIAL IVP ONE; -NS 0.9% IV ONE; -NS 0.9% IVPB ONE; -NS(*) 0.9% 100 ML BAG 100 ML IVPB PRN; -PEGFILGRASTIM 6 MG/0.6 ML KIT SUBQ PRN; -PEGFILGRASTIM 6 MG/0.6 ML SYR SUBQ PRN; -SODIUM CHLORIDE 0.9% IVP ONE; -VINBLASTINE IVP ONE; -WATER FOR INJ,STERILE 20 ML IVP PRN
== END ==
LOC: US 01:27
PROVIDERS: ATTEND Internal Medicine
DX: I51.7 Cardiomegaly (principal); Q21.0 Ventricular septal defect
CPT/HCPCS: 93306

== ENCOUNTER 2018-04-21 10:45 | Outpatient (RCR) | payer BC, OTHER ==
[2018-01-29 09:30] VITALS: BMI 27.7
--- NOTE | 2018-02-10 14:51 | PT INITIAL EVALUATION ---
MEDICAL DIAGNOSIS: Hodgkin Lymphoma TREATMENT DIAGNOSIS: Hodgkin Lymphoma DATE OF ONSET: 01/05/18 SUBJECTIVE: Tez is a pleasant 57 year old male presenting to oncology rehabilitation following recent diagnosis of Hodgkin Lymphoma. Pt reports that around the beginning of December, he started feeling ill. Pt later was diagnosed with Hodgkin Lymphoma following a cholecystectomy with affected surrounding abdominal lymph nodes. Complications involving septic infection delayed initiation of treatment with prolonged hospitalization. Following pt, initiated chemotherapy protocol at [facility], located in [place], [place] where he was monitored with gradual initiation. Pt is now receiving treatment on an outpatient basis in [place], [place]. Further complications including onset of pneumonia, and generalized weakness and fatigue have arose since the initiation of treatment. Pt also reports B LE swelling for which he was recently started on Lasix 1 week prior. Currently pt reports no pain. Pt's is present throughout evaluation and education. REHAB PROBLEM LIST: Decreased Strength Decreased Endurance Decreased Balance Decreased Function Decreased ADL's Decreased Mobility PREVIOUS MEDICAL HISTORY: See EMR OCCUPATION: Previously employed by [employer], but is currently taking time off work. OBJECTIVE: Abdominal incisions are well healing with all completely healed except the area just superior to the umbilicus with slight scabbing still present but without any signs of redness or pain. ROM: UE ROM WFL without pain. Strength: LE MMT: Hip: Flexion: B 3+/5, Ext: L 4/5, R 4+/5, Abd/Add: B 4/5. Knee : Flexion: B 4+/5, Ext: B 5/5. Ankle: PF: L 4/5, R 4+/5, DF: L 4+/5, R 5/5. Palpation: B LE swelling is present below the knees at the distal palacios and ankle. 1+ pitting edema is present surrounding B malleoli. Sensation: Pt reports no change in sensation at this time. Mobility: ECOG Performance Status: Grade 2-3 depending on the day Balance: Pt reports decreased balance and feeling wobbly with ambulation. Other Objective Findings: FACT-G (Eval): PWB: , SWB: , EWB: 13.224, FWB: , Total: 66.2/108 ASSESSMENT: Pt shows signs and symptoms consistent with generalized weakness with recent hospitalization as well as with Hodgkin Lymphoma diagnosis and treatment. Physical therapy is indicated for this patient to improve functional mobility with ADL's and recreational activities as well as to decrease further side-effects with ADL's. Short Term Goals In 3 MO pt will improve ECOG performance level to grade 2 or less for improved functional mobility with ADL's and improved performance with ongoing oncological treatment. In 3 MO pt will increase B LE strength as tested by MMT to 4/5 or greater in all major motor groups for improved function with ADL's. In 3 MO pt will improve SLS balance to >10 seconds B for improved balance with ambulation and ADL's and decreased fall risk. In 6 MO pt will improve ECOG performance level to grade 2 or less for improved functional mobility with ADL's and improved performance with ongoing oncological treatment. In 6 MO pt will improve FACT-G score to >70/108 for improved function with ADL' s and well-being. Patient's Goals Improve strength and stability with ongoing oncological treatment. PLAN: Patient to be seen for Manual Therapy/STM/MET Strengthening/condition Ice/Heat Range of Motion Spinal Stabilization Ultrasound Stretching Iontophoresis Neuromuscular Re-ed Closed Chain Program Electrical Stim Posture/Body mechanics Gait Trg/Balance Trg Biofeedback [facility]Manual Traction Therapeutic Activities Pelvic Floor 1x/2Weeks for 6 MO If you have any questions, comments, or concerns about this report or plan, please contact me at . Thank you, Svetlana Sigala, PT, DPT, CLT MTDD
--- NOTE | 2018-03-11 13:15 | PT PLAN OF CARE ---
Physician: Gladys Terry MD Patient is being seen: 2x/MO Therapist: Svetlana Sigala, PT, DPT, CLT Medical Diagnosis: Hodgkin's Lymphoma Treatment Diagnosis: Hodgkin's Lymphoma Date of Onset: 01/05/18 Date of Initial Evaluation: 02/10/18 Date patient was last seen: 03/10/18 Number of treatments: 3 Number of cancellations/No shows: 0 INTERVENTIONS: Manual Therapy/STM/MET Strengthening/condition Ice/Heat Range of Motion Spinal Stabilization Ultrasound Stretching Iontophoresis Neuromuscular Re-ed Closed Chain Program Electrical Stim Posture/Body mechanics Gait Trg/Balance Trg Biofeedback Home Exercise Program Mech./Manual Traction Therapeutic Activities Pelvic Floor GOALS: In 3 MO pt will improve ECOG performance level to grade 2 or less for improved functional mobility with ADL's and improved performance with ongoing oncological treatment. In 3 MO pt will increase B LE strength as tested by MMT to 4/5 or greater in all major motor groups for improved function with ADL's. In 3 MO pt will improve SLS balance to >10 seconds B for improved balance with ambulation and ADL's and decreased fall risk. In 6 MO pt will improve ECOG performance level to grade 2 or less for improved functional mobility with ADL's and improved performance with ongoing oncological treatment. In 6 MO pt will improve FACT-G score to >70/108 for improved function with ADL' s and well-being. PATIENT'S GOAL: Improve strength and stability with ongoing oncological treatment. Status of Patient's Goals: In Progress Patient Compliance: Good Prognosis: Good Reasons for continuing therapy: Pt shows improved status with decreased side- effects. However, pt functional status is still diminished with pt very sedentary most days. Pt and his were educated on the importance of aerobic exercise and strengthening to maintain function as well as increase likelihood of return to work with survivorship status. Incision is fully healed and shows good mobility. With gait pt shows decreased foot clearance, but is aware of this status and is able to correct with self-cuing. Further PT is indicated to improve functional strength and monitor HEP continuation. ROM: UE ROM WFL without pain. Strength: LE MMT: Hip: Flexion: B 3+/5, Ext: L 4/5, R 4+/5, Abd/Add: B 4/5. Knee : Flexion: B 4+/5, Ext: B 5/5. Ankle: PF: L 4/5, R 4+/5, DF: L 4+/5, R 5/5. Palpation: Pt no longer has LE swelling and has discontinued Lasix. Special Tests: FACT-G (Eval): PWB: , SWB: , EWB: 13.2, FWB: , Total: 66.2/108 FACT-G (03/10/18): PWB: , SWB: , EWB: 16.5, FWB: 15.03/16, Total: 71/108 Mobility: ECOG Performance Status: Grade 2-3 depending on the day If you have any questions or concerns, please feel free to contact me at . Thank you, Svetlana Sigala, PT, DPT, CLT MTDD
--- NOTE | 2018-04-07 11:53 | PT PLAN OF CARE ---
Physician: Gladys Terry MD Patient is being seen: 1x/2 Weeks Therapist: Svetlana Sigala, PT, DPT, CLT Medical Diagnosis: Hodgkin's Lymphoma Treatment Diagnosis: Hodgkin's Lymphoma Date of Onset: 01/05/18 Date of Initial Evaluation: 02/10/18 Date patient was last seen: 04/07/18 Number of treatments: 5 Number of cancellations/No shows: 0 INTERVENTIONS: Manual Therapy/STM/MET Strengthening/condition Ice/Heat Range of Motion Spinal Stabilization Ultrasound Stretching Iontophoresis Neuromuscular Re-ed Closed Chain Program Electrical Stim Posture/Body mechanics Gait Trg/Balance Trg Biofeedback Home Exercise Program Mech./Manual Traction Therapeutic Activities Pelvic Floor GOALS: In 3 MO pt will improve ECOG performance level to grade 2 or less for improved functional mobility with ADL's and improved performance with ongoing oncological treatment. MET In 3 MO pt will increase B LE strength as tested by MMT to 4/5 or greater in all major motor groups for improved function with ADL's. In 3 MO pt will improve SLS balance to >10 seconds B for improved balance with ambulation and ADL's and decreased fall risk. In 6 MO pt will improve ECOG performance level to grade 2 or less for improved functional mobility with ADL's and improved performance with ongoing oncological treatment. In 6 MO pt will improve FACT-G score to >70/108 for improved function with ADL' s and well-being. PATIENT'S GOAL: Improve strength and stability with ongoing oncological treatment. Status of Patient's Goals: In Progress Patient Compliance: Good Prognosis: Good Reasons for continuing therapy: Tez shows improved physical function with decreased fatigue and increased ability to perform ADL's. Pt emotional well- being shows slight decrease with overall decreased performance and taste being affected by chemo drugs altering QOL. Pt show possible neural impingement of the R side with radiating pain down the R LE but since pain was not present it was not assessed today. Further PT to monitor and assess if pain continues. Pt shows improved participation with home and social events. ROM: UE ROM WFL without pain. Strength: LE MMT: Hip: Flexion: B 3+/5, Ext: L 4/5, R 4+/5, Abd/Add: B 4/5. Knee : Flexion: B 4+/5, Ext: B 5/5. Ankle: PF: L 4/5, R 4+/5, DF: L 4+/5, R 5/5. Palpation: Pt no longer has LE swelling and has discontinued Lasix. Special Tests: FACT-G (Eval): PWB: , SWB: , EWB: 13.2, FWB: , Total: 66.2/108 FACT-G (03/10/18): PWB: 18, SWB: , EWB: 16.5, FWB: 15.03/16, Total: 71/108 FACT-G (04/07/18): PWB: 15, SWB: , EWB: 16, FWB: 10/16, Total: 63/ 108 Mobility: ECOG Performance Status: Grade 2-3 depending on the day If you have any questions or concerns, please feel free to contact me at [phone]. Thank you, Svetlana Sigala, PT, DPT, CLT MTDD
[2018-04-21] MEDS ORDERED: SULF-198 PO (12:15)
[2018-04-28] MEDS ORDERED: NAPR-1043 PO (10:32)
== END 2018-05-11 ==
LOC: PT 10:45
PROVIDERS: ATTEND Internal Medicine Hematology
DX: C81.90 Hodgkin lymphoma, unspecified, unspecified site (principal); R53.1 Weakness; R60.0 Localized edema; Z90.49 Acquired absence of other specified parts of digestive tract
CPT/HCPCS: 97162

== ENCOUNTER 2018-07-14 13:57 | Outpatient (RCR) | payer BC ==
[2018-01-29 09:30] VITALS: Ht 172.7 cm; Wt 84.5 kg
[2018-04-21 08:57] VITALS: BP 123/74
[2018-04-21] MEDS: NS(*) 0.9% 500 ML BAG 500 ML IV PRN (09:00)
[2018-04-21] MEDS: LIDOCAINE/SOD BICARB 8.4% SYR ID PRN (09:00)
[2018-04-21] MEDS: HEPARIN FLSH (PORT) 500 UN/5ML IVP PRN (11:55)
--- NOTE | 2018-04-21 17:07 | Oncology Progress Note ---
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 Slightly decreased left ventricular ejection fraction with some akinesis along the apical portion of the interventricular septum as well as the apex of the left ventricle. The left ventricle is enlarged. The right ventricle is the upper range of normal in size if not slightly enlarged. The other chamber sizes are normal. 2. A trileaflet aortic valve with no aortic stenosis, minimal aortic sclerosis & a trace of aortic insufficiency. 3. A trace of mitral insufficiency with no mitral stenosis. 4. A mild amount of tricuspid insufficiency with estimated right ventricular systolic pressures of 54mm Hg which does include an estimated right atrial pressure of 3mm Hg indicating moderate pulmonary hypertension & increased right ventricular systolic pressures. 04/15/2018 2D echo done Impression The left ventricle is moderately dilated. There is mild concentric left ventricular hypertrophy. Considering 2-D visualization and technical calculations the left ventricle ejection fraction estimate is 20-25%. The anteroseptal wall is dyskinetic. The apex is akinetic. Compare to prior full 01/20/18. 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 he was not a candidate for for anthracycline or bleomycin due to unknown etiology to heart failure and significant cardiopulmonary issues at diagnosis. Avoiding bleomycin due to his heart history and avoiding anthracyclines due to his suppressed EF. He follows with Dr. Harry in Cardiology last seen on 02/17/18. He is on Rx for [id number] PO Daily and Lisinopril 2.5mg PO daily as of 02/17/2018. He has both heart failure and liver involvement. patient is seen at [facility] for his treatment. he reports being in his usual state of health. Patient is hemodynamically stable. Apart from right leg pain, and minimal fatigue denies no changes from his baseline, and reports no issues, no cardiac type chest pain, no SOb, no changes in bladder or bowel patter. of note significant PMH of Bonilla's palsy.History of hernia repair. Cholecystectomy. Nodular sclerosis 01/29/18 His echocardiogram here showed a slightly decreased ejection fraction at 51%. He then had a cardiac catheterization which showed an EF of 35% with normal coronary arteries. his lisinopril and metoprolol were placed on hold secondary to low blood pressures 93/55-88 [id number]. Diagnostic Studies Result Diagram: 04/21/1891404/21/18914 [facility] Patient History: FH: dementia FATHER, , Age:82 MOTHER, , Age:90 FH: stroke MOTHER, , Age:90 Social/Occupational History Social History: Social History This is a 58 Yr old White male, he is S Single and has [] Children Hx Smoking: Yes Smoking Status: Former Smoker Exposure to Second Hand Smoke?: No When Quit Tobacco?: QUIT IN 1987 Allergies & Medications Allergies: Coded Allergies: No Known Drug Allergies (Verified , 01/28/18) Home Meds Active Scripts Chlorpromazine Hcl (CHLORPROMAZINE HCL) 25 Mg Tablet, 25 MG PO Q6H Y for HICCUPS , #30 TAB 4 Refills Prov:YOSI ARIZMENDI MD 04/08/18 Potassium Chloride (POTASSIUM CHLORIDE) 10 Meq Tablet.er, 10 MEQ PO QDAY Y for lasix use, #30 TAB 5 Refills Prov:YOSI ARIZMENDI MD 02/02/18 Reported Medications Sulfamethoxazole/Trimet 800-160 Mg Tab (BACTRIM DS TABLET) 1 Each Tablet, 1 TAB PO QDAY, #30 TAB 2 Refills 04/21/18 Levofloxacin 500 Mg Tab (LEVAQUIN 500 MG TAB) 500 Mg Tablet, 500 MG PO QDAY for LOW ANC for 90 Days, #30 TAB 3 Refills 03/24/18 Lisinopril (LISINOPRIL) 5 Mg Tablet, 2.5 MG PO QDAY, TAB 03/02/18 Prochlorperazine Maleate (Compazine) 10 Mg Tablet, PO Q8H Y for NAUSEA/VOMITING 01/29/18 Acetaminophen (TYLENOL) 325 Mg Tablet, 325 MG PO, TAB 01/28/18 Hydrocodone Bit/Acetaminophen (HYDROCODON-ACETAMINOPHEN 5-325) 1 Each Tablet, 1 EACH PO Q6H, TAB 01/28/18 Ondansetron (ZOFRAN ODT) 4 Mg Tab.rapdis, 8 MG PO Q12H, TAB.ALYSHA 01/28/18 Metoprolol Succinate (METOPROLOL SUCCINATE) 25 Mg Tab.er.24h, 1 TAB PO QDAY, TAB Take 0.5 tablet by mouth 01/28/18 Review of Systems Constitution: Denies Appetite/Weight Change, Denies Fever/Chills/Sweating, Denies Recent Infection, Denies Other HEENT: No EARS: Tinnitus, No NOSE: Nasal Discharge, No THROAT: Sore Throat, No EYES: Dipolpia, No EARS: Hearing Problems, No NOSE: Epistaxis, No THROAT: Mouth Ulcers, No EYES: Vision Change, No OTHER Respiratory: No Cough, No Expectoration, No Hemoptysis, No Shortness of Breath , No OTHER Cardiovascular: No Chest Pain, No Orthopnea, No Edema, No Palpitations, No OTHER Gentiourinary: No Hematuria, No Dysuria, No Nocturia, No Other Musculoskeletal: Joint Pain (Right LEg) Hematological: No Bleeding, No Weakness, No Enlarged Lyph Nodes, No Bruising, Fatigue (moderate), No Other Skin: No Skin Rash, No Lumps, No Erythema, No Dry Skin, No Moist Skin, No Other Psychiatric: No Anxiety, No Depression, No Other Vital Signs Vital Signs Temperature: 97.3 Pulse: 83 BP Systolic: 123 BP Diastolic: 74 Respiratory Rate: 16 O2 SAT: 93 O2 Delivery: Height (feet) Height (inches) 68.00 Weight lb: 168 Weight oz: Weight Kg (Francisco): Pain: 0 ECOG- 1 Physical Exam General: Looks Stable, Other (In no acute distress.) HEENT: HEAD:Atraumatic Lungs: Clear to Auscultation, Percussion Bilaterally Heart: Regular Rate and Rhythm, No Gallops, No Murmurs, No Clicks, No Rubs, No Other Abdomen: No Soft and Nontender, No Hepatosplenomegaly, No Masses, No Other Extremities: No Cyanosis, No Clubbing, No Edema, No Other Psychiatric: No Mood appears normal, No Affect appears normal, No Other Skin: No Skin Rashes, No Bruising, No Purpura, No Moist Desquamation, No Dry Desquamation, No Errythema, No Mild Errythema, No Moderate Errythema, No Severe Errythema, No Induration, No Other Breast: No No Masses, No No Nipple Discharge, No No Skin Changes, No Other Assessment and Plan Assessment and Plan Tez Olmstead is a pleasant 57-year-old gentleman with 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 Stage BRANDT classical Hodgkin lymphoma, nodular sclerosis subtype. He was not a candidate for an anthracycline, patient did not receive bleomycin given his cardiopulmonary status. Plan for 12 doses of brentuximab, vinblastine and dacarbazine. Patient Experienced complications with Pneumonia which is not uncommon. He did require a 20% dose reduction due to side effects starting with cycle two , and Neulasta was held due to reported significant side effects from that as well. Overall he is very happy with how he is progressing, with treatment. he informs me that he feels much better. His night swats have completely gone, he reports right leg pain for 10-20 minutes alleviated by rest. 2. Congestive heart failure. of unknown etiology. Bp today 123/74-83. cardiac catheterization which showed an EF of 35%. Patient is asymptomatic. He does not have edema, he stopped taking Lasix approximately 1-2 months ago, he denies SOB, night time cough, No dyspnea on exertion or PND ( paroxysmal nocturnal dypsnea) .he reports sleeping with only one pillow at night. he informs me that apart from the pain on his right leg, he is able to walk for hours without major problems. His informs me that he has been eating salt with lemon and saltines, education reinforced to keep a low sodium diet. He is on Rx for vozmgeqhnjn54.5mg PO Daily and Lisinopril 2.5mg PO daily as of 2017. his Bp has been stable with SBp>120 today. He has both heart failure and liver involvement. 3. Pancytopenia. in the setting of antineoplastic chemotherapy. WBC of 1.2; absolute neutrophil count of 0.8; patient on Levaquin ppx and Bactrim will be added today. will monitor counts tightly. 4. Right Leg Pain. Consider Right leg radiograph. pain level 9 (0-10 scale) PET due on 05/15/18 PLAN -Hold chemotherapy x2 weeks. Will Discuss Tx plan in detail with Dr. Arizmendi -Resting MUGA scan STAT, per Dr. Portillo Cardio Recs, given 2D echo EF in the 20 -25%; Hx of Heart Failure -Repeat 2d echo prior to next round of chemotherapy approximately on 05/06/18 -Cardiology Consult with MUGA scan results, Cardio will see him before his scheduled appointment for 05/01/18 -Patient to See MD/TAYLOR after MUGA scan result, and cardiology appointment -PET due 05/15/18 - Plan for Neupogen administration if counts not recovering with next labs -Consider resuming growth factors with next round of chemo, combined with tylenol 325mg and Claritin for bone pain -Bactrim DS 1 tab Po Daily starting today 04/20/18 - Patient to reduce salt intake, and adapt a low sodium diet. - Consider Right leg radiograph. pain level 9 (0-10 scale) TIME SPENT: 45 minutes 40 > minutes includes but not limited to discussion, counselling and co-ordination~ of care. Discussion with other health care providers, record review, review of lab work, diagnostic tests. Plan discussed extensively with patient and spouse. All the questions answered today. Thank you for the opportunity to be involved in the care of Tez Payton. Billing Level: Return visit 5 CC Copies to: HERACLIO LORA MD; YOSI ARIZMENDI MD ECOCANDICE-SHELBY SHETH-[place], ONC Apr 21, 2018 11:56
--- NOTE | 2018-04-27 20:07 | RADIOLOGY IMAGING REPORT ---
FACILITY: [facility] PATIENT NAME: Tez Payton : 1960 MR: [id number] V: [id number] EXAM DATE: ORDERING PHYSICIAN: YOSI ARIZMENDI TECHNOLOGIST: Location: [facility] - [place], [place] Patient: Tez Payton : 1960 Visit/Account:[id number] Date of Sevice: 04/27/2018 EXAMINATION: MUGA scan (cardiac blood pool study) 04/27/2018 1:00 PM HISTORY: 20-25 % EF by echocardiogram TECHNIQUE: The patient was administered 21.4 mCi technetium labeled red blood cells intravenously. D ynamic imaging was done over the heart. COMPARISON: Echocardiogram 04/08/1718 FINDINGS: Heart rate 88 BPM. Ejection fraction defined between end-diastolic and end-systolic areas is calculated at 24.4%. IMPRESSION: EF is calculated at 24.4%. Report Dictated By: Tez Rodriguez MD at 04/27/2018 7:58 PM Report E-Signed By: Tez Rodriguez MD at 04/27/2018 8:03 PM WSN:[id number]
[2018-04-28 10:28] VITALS: BP 130/80
[2018-04-28 10:31] LABS: PLATELET COUNT, AUTOMATED 197 K/uL (150-450)
--- NOTE | 2018-04-29 17:37 | ONCOLOGY FOLLOW UP NOTE ---
EVENT DATE: April 28, 2018 CHIEF COMPLAINT/REASON FOR VISIT Mr. Payton is a pleasant, 58-year-old gentleman with classical nodular sclerosis Hodgkin lymphoma, on treatment with brentuximab, vinblastine, and dacarbazine, here for followup half way through therapy. HISTORY OF PRESENT ILLNESS Mr. Payton returns. Please see my note from January 19, 2018, as well as notes from [place] for more details. In short, we utilized brentuximab instead of bleomycin given his heart history, and we could not utilize anthracyclines given his suppressed EF. We do not have an exact etiology for his heart rate failure, but I am concerned that it may have been due to liver infiltration of his lymphoma causing significantly increased afterload leading to heart failure , but I cannot be certain of this at all. I defer to Dr. Portillo and Dr. Harry in Cardiology. During his treatment, he did not tolerate Neulasta due to side effects, and so we have stopped it. His EF had improved, and so we proceeded with therapy, but then, however, on followup, we noted that his ejection fraction was below 30% again and have held chemotherapy briefly. I plan to continue the targeted therapy with brentuximab for the second half of therapy assuming that his PET scan later this month looks well. I met with Mr. Payton urgently to explain the logic behind this, and he expresses understanding and agreement with this plan. I spoke with Dr. Portillo in Cardiology, and he has followup with the cardiology team later this week. PAST MEDICAL HISTORY 1. Bonilla's palsy. 2. History of hernia repair. 3. Cholecystectomy. 4. Nodular sclerosis, classical Hodgkin lymphoma, with involvement of the liver , stage IV. Plan for 12 doses of chemotherapy. Avoiding bleomycin due to his heart history as well as avoiding anthracyclines due to his suppressed EF. FAMILY HISTORY Cancer in the sister. SOCIAL HISTORY Patient is . He has presented with his . Former smoker, quit in 1977. REVIEW OF SYSTEMS CONSTITUTIONAL: No fever, fatigue, chills, significant weight change. HEENT: No headache or vision changes. LYMPHATIC: No concerning lumps or bumps. CARDIOVASCULAR: No chest pain, dyspnea on exertion, or edema. His heart exam seems normal, and he feels well. RESPIRATORY: No shortness of breath, wheeze, or cough. GASTROINTESTINAL: No nausea or vomiting. ENDOCRINE: No heat or cold intolerance. PSYCHIATRIC: Anxiety and depression. SKIN: No concerning findings. MUSCULOSKELETAL: No abnormalities of concern. Remainder of 14 systems otherwise negative. PHYSICAL EXAMINATION VITAL SIGNS: Blood pressure 130/80, pulse 96, respiratory rate 16, temperature 97.7 Fahrenheit, oxygen saturation 94% on room air. PAIN: Zero/10 FATIGUE: Zero/10 GENERAL: Stable condition, resting comfortably in the chair. CARDIOVASCULAR: Regular rate and rhythm. LUNGS: Diminished sounds overall, but no abnormalities to suggest infection. Remainder of full physical exam deferred to amount of time spent in counseling and coordination of care. IMPRESSION (Import.) PLAN Mr. Payton is a pleasant, 58-year-old gentleman with the followin. Stage Monica classical Hodgkin lymphoma, nodular sclerosis subtype. He is not a candidate for the anthracycline, and we are avoiding bleomycin given his cardiopulmonary status. We have finished six of 12 doses of brentuximab, vinblastine, and dacarbazine. The first cycle was complicated by pneumonia. I am worried now that his ejection fraction has slipped below 30% again. Discussed with Cardiology regarding meeting with him to discuss any changes to his medical management. I am concerned that we carry the risk of curing his lymphoma if we press on with chemotherapy, but causing life-altering heart failure. As a result, I think we need to hold chemotherapy and continue the targeted therapy with brentuximab at this time. Plan to get a PET scan to see how far we have progressed with six doses of therapy thus far. This is scheduled for later this month. 2. CHF, etiology not completely clear. We greatly appreciate the care by Dr. Portillo and Dr. Harry of the cardiology team. I answered all of his many questions today. Billing Return visit level 4. Total time 30 minutes, consulting time 20. MTDD
[2018-05-11 14:06] VITALS: BP 115/71
[2018-05-11 14:54] LABS: PLATELET COUNT, AUTOMATED 142 K/uL (150-450)
[2018-05-11 15:27] VITALS: BP 113/75
[2018-05-12 09:00] VITALS: BP 115/79
[2018-05-12] MEDS: DEXAMETHASONE SOD PHOS 10MG/ML IVP PRN (09:05)
[2018-05-12] MEDS: HEPARIN FLSH (PORT) 500 UN/5ML IVP PRN (09:05)
[2018-05-12] MEDS: NS(*) 0.9% 500 ML BAG 500 ML IV PRN (09:05)
[2018-05-12 10:42] VITALS: BP 119/73
--- NOTE | 2018-05-13 00:20 | ONCOLOGY FOLLOW UP NOTE ---
EVENT DATE: May 11, 2018 CHIEF COMPLAINT/REASON FOR VISIT Mr. Payton is a very pleasant, 58-year-old gentleman with classical nodular sclerosing Hodgkin lymphoma, here for followup. HISTORY OF PRESENT ILLNESS Mr. Payton returns. Please see my note from January 19, 2018, as well as notes from [place] for more details. In short, we utilized brentuximab instead of bleomycin given his heart history, and we could not utilize anthracyclines given the suppressed EF. We do not have an exact etiology for his heart failure ; however, I am concerned it may be related to liver infiltration of lymphoma causing significantly increased afterload leading to heart failure. I am by no means certain of this. I defer to Dr. Portillo, Dr. Harry, and Dr. Saleh in Cardiology. During his treatment, he did not tolerate Neulasta, so we stopped it and utilized antibiotics which continue at this time. His EF had improved, so we proceeded with therapy, but on followup imaging, his ejection fraction was below 30% again, and we have held chemotherapy. With medication adjustments, he feels much, much better. He feels stronger and feels that he is ready to go back to work. His ejection fraction may have improved, and I continue to believe that the chemotherapy may be temporarily suppressing his EF. While if he is safe to get a pacemaker, it may not be required if he is going to improve with time. We are going to drop the chemotherapy and continue with the targeted brentuximab which should have low to no risk to the heart. We reviewed his PET scan in detail today, and I showed him pictures that I printed from the [employer] system for him to take home. In my read, it shows complete remission. PAST MEDICAL HISTORY 1. Bonilla palsy. 2. History of hernia repair. 3. Cholecystectomy. 4. Nodular sclerosis, classical Hodgkin lymphoma, with involvement of the liver , stage IV. Plan for 12 doses of chemotherapy. Avoiding bleomycin due to his heart history as well as avoiding anthracyclines due to his suppressed EF. FAMILY HISTORY Cancer in the sister. SOCIAL HISTORY Patient is . He has presented with his . Former smoker, quit in 1977. REVIEW OF SYSTEMS CONSTITUTIONAL: No fever, fatigue, chills, significant weight change. HEENT: No headache or vision changes. LYMPHATIC: No concerning lumps or bumps. CARDIOVASCULAR: No chest pain, dyspnea on exertion, or edema. His heart exam seems normal, and he feels well. RESPIRATORY: No shortness of breath, wheeze, or cough. GASTROINTESTINAL: No nausea or vomiting. ENDOCRINE: No heat or cold intolerance. PSYCHIATRIC: Anxiety and depression. SKIN: No concerning findings. MUSCULOSKELETAL: No abnormalities of concern. Remainder of 14-point review of systems otherwise negative. PHYSICAL EXAMINATION VITAL SIGNS: Blood pressure 115/71 and much improved, pulse 93, respiratory rate 16, temperature 97 Fahrenheit, oxygen saturation 95% on room air. Weight 80.4 kg. Pain zero/10. Fatigue zero/10. GENERAL: Stable condition, resting comfortably in the chair. HEENT: Normocephalic, atraumatic. CARDIOVASCULAR: Regular rate and rhythm. I do suspect he has some cardiomegaly considering the displaced apical pulse. RESPIRATORY: Clear to auscultation bilaterally, much improved. No longer diminished. ABDOMEN: Soft, nontender. LYMPHATIC: No appreciable cervical, supraclavicular, or axillary adenopathy. Remainder of physical exam otherwise unremarkable. IMPRESSION AND PLAN Mr. Payton is a pleasant, 58-year-old gentleman with the followin. Stage Monica classical Hodgkin lymphoma, nodular sclerosing subtype. He was not a candidate for anthracyclines or bleomycin given his cardiopulmonary status. We finished six of 12 doses of brentuximab, vinblastine, and dacarbazine. The first cycle was complicated by pneumonia, but no issues since then in terms of infection. His ejection fraction dipped below 30%, and so we are going to stop vinblastine and dacarbazine and resume brentuximab every three weeks to complete six doses. He has a PET-negative scan at the half way point. Unfortunately, he is not a candidate for further chemotherapy given his heart. 2. Congestive heart failure, etiology not completely clear. I greatly appreciate the cardiology team. At the time of his most recent echo and lack of significant improvement with a beta sal and PHILIP inhibitor, he would technically meet criteria to consider a pacemaker. I will reach out to the cardiology team to determine how critical this is. I anticipate he will improve with the discontinuation of the chemotherapy and then even further when we finish the brentuximab. If my theory is correct that the lymphoma contributed to his heart failure, this will improve with time, too. Mr. Payton is very hesitant to get the pacemaker at this time, although I feel it would be safe. I answered all of his many questions today. BILLING Return visit level 4. MTDD
[2018-05-19 09:00] VITALS: BP 111/77
[2018-05-19 09:09] LABS: PLATELET COUNT, AUTOMATED 134 K/uL (150-450)
[2018-06-02 09:06] VITALS: BP 108/68
[2018-06-02] MEDS: HEPARIN FLSH (PORT) 500 UN/5ML IVP PRN (09:09)
[2018-06-02] MEDS: LIDOCAINE/SOD BICARB 8.4% SYR ID PRN (09:09)
[2018-06-02] MEDS: NS(*) 0.9% 500 ML BAG 500 ML IV PRN (09:09)
[2018-06-02] MEDS: DEXAMETHASONE SOD PHOS 10MG/ML IVP PRN (09:51)
--- NOTE | 2018-06-02 10:25 | Oncology Progress Note ---
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 Slightly decreased left ventricular ejection fraction with some akinesis along the apical portion of the interventricular septum as well as the apex of the left ventricle. The left ventricle is enlarged. The right ventricle is the upper range of normal in size if not slightly enlarged. The other chamber sizes are normal. 2. A trileaflet aortic valve with no aortic stenosis, minimal aortic sclerosis & a trace of aortic insufficiency. 3. A trace of mitral insufficiency with no mitral stenosis. 4. A mild amount of tricuspid insufficiency with estimated right ventricular systolic pressures of 54mm Hg which does include an estimated right atrial pressure of 3mm Hg indicating moderate pulmonary hypertension & increased right ventricular systolic pressures. 04/15/2018 2D echo done Impression The left ventricle is moderately dilated. There is mild concentric left ventricular hypertrophy. Considering 2-D visualization and technical calculations the left ventricle ejection fraction estimate is 20-25%. The anteroseptal wall is dyskinetic. The apex is akinetic. Compare to prior full 01/20/18. Essentially unchanged Treatment Treatment - Plan 12 doses o f Atypical regimen with brentuximab, vinblastine and dacarbazine, since patient is not a candidate for Anthracyclines. -04/2018 Brentuximab single agent only x6 doses. 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 On treatment with Brentuximab only second dose today after the break due to EF in the 20-25%. Patient is seen at the infusion center for his treatment. he reports feeling great! he informs me that he went camping and fishing this Friday, and he did tolerate it very Well. Reports minimal SOB on exertion especially when bending over. But he feels that his symptoms have significantly improved and he is ready to go back to work. I did write a workers note clearing Tez Olmstead to return to work with reasonable accommodation by Friday06/08/2018. Patient is hemodynamically stable, afebrile. Apart from right leg pain ( improved with Physical therapy), and minimal fatigue denies no changes from his baseline, and reports no issues, no cardiac type chest pain, no changes in bladder or bowel pattern. Patient was not a candidate for anthracycline or bleomycin due to unknown etiology to heart failure and significant cardiopulmonary issues at diagnosis. Avoiding bleomycin due to his heart history and avoiding anthracyclines due to his suppressed EF. He follows with Dr. Harry in Cardiology last seen on . He is on Rx for [id number] PO Daily and Lisinopril 2.5mg PO daily as of 02/17/2018. He has both heart failure and liver involvement. of note significant PMH of Bonilla's palsy.History of hernia repair. Cholecystectomy. Nodular sclerosis 01/29/18 His echocardiogram here showed a slightly decreased ejection fraction at 51%. He then had a cardiac catheterization which showed an EF of 35% with normal coronary arteries. his lisinopril and metoprolol were placed on hold secondary to low blood pressures 93/55-88 [id number] Living Conditions . Diagnostic Studies Result Diagram: 06/02/18 0900 06/02/18 0900 PMH Patient History: FH: dementia FATHER, , Age:82 MOTHER, , Age:90 FH: stroke MOTHER, , Age:90 Social/Occupational History Social History: Social History This is a 58 Yr old White male, he is S Single and has [] Children Hx Smoking: Yes Smoking Status: Former Smoker Exposure to Second Hand Smoke?: No When Quit Tobacco?: QUIT IN 1987 Allergies & Medications Allergies: Coded Allergies: No Known Drug Allergies (Verified , 01/28/18) Home Meds Reported Medications Naproxen Sodium (ALEVE) 220 Mg Tablet, 220 MG PO TID, TAB 04/28/18 Sulfamethoxazole/Trimet 800-160 Mg Tab (BACTRIM DS TABLET) 1 Each Tablet, 1 TAB PO QDAY, #30 TAB 2 Refills 04/21/18 Levofloxacin 500 Mg Tab (LEVAQUIN 500 MG TAB) 500 Mg Tablet, 500 MG PO QDAY for LOW ANC for 90 Days, #30 TAB 3 Refills 03/24/18 Lisinopril (LISINOPRIL) 5 Mg Tablet, 2.5 MG PO QDAY, TAB 03/02/18 Prochlorperazine Maleate (Compazine) 10 Mg Tablet, PO Q8H Y for NAUSEA/VOMITING 01/29/18 Acetaminophen (TYLENOL) 325 Mg Tablet, 325 MG PO, TAB 01/28/18 Hydrocodone Bit/Acetaminophen (HYDROCODON-ACETAMINOPHEN 5-325) 1 Each Tablet, 1 EACH PO Q6H, TAB 01/28/18 Ondansetron (ZOFRAN ODT) 4 Mg Tab.rapdis, 8 MG PO Q12H, TAB.ALYSHA 01/28/18 Metoprolol Succinate (METOPROLOL SUCCINATE) 25 Mg Tab.er.24h, 1 TAB PO QDAY, TAB Take 0.5 tablet by mouth 01/28/18 Review of Systems Constitution: Denies Appetite/Weight Change, Denies Fever/Chills/Sweating, Denies Recent Infection, Denies Other HEENT: No EARS: Tinnitus, No NOSE: Nasal Discharge, No THROAT: Sore Throat, No EYES: Dipolpia, No EARS: Hearing Problems, No NOSE: Epistaxis, No THROAT: Mouth Ulcers, No EYES: Vision Change, No OTHER Respiratory: No Cough, No Expectoration, No Hemoptysis, No Shortness of Breath , No OTHER Cardiovascular: No Chest Pain, No Orthopnea, No Edema, No Palpitations, No OTHER Gentiourinary: No Hematuria, No Dysuria, No Nocturia, No Other Musculoskeletal: Joint Pain (Right LEg) Hematological: No Bleeding, No Weakness, No Enlarged Lyph Nodes, No Bruising, Fatigue (minimal), No Other Skin: No Skin Rash, No Lumps, No Erythema, No Dry Skin, No Moist Skin, No Other Psychiatric: No Anxiety, No Depression, No Other Vital Signs Vital Signs Temperature: 97.7 Pulse: 85 BP Systolic: 108 BP Diastolic: 68 Respiratory Rate: 16 O2 SAT: 94 O2 Delivery: Height (feet) Height (inches) 68.00 Weight lb: 168 Weight oz: Weight Kg (Francisco): Pain: 0 Physical Exam General: Looks Stable, Other (In no acute distress.) HEENT: HEAD:Atraumatic Lungs: Clear to Auscultation, Percussion Bilaterally Heart: Regular Rate and Rhythm, No Gallops, No Murmurs, No Clicks, No Rubs, No Other Abdomen: No Soft and Nontender, No Hepatosplenomegaly, No Masses, No Other Extremities: No Cyanosis, No Clubbing, No Edema, Other (Rigght leg pain.) Psychiatric: No Mood appears normal, No Affect appears normal, No Other Skin: No Skin Rashes, No Bruising, No Purpura, No Moist Desquamation, No Dry Desquamation, No Errythema, No Mild Errythema, No Moderate Errythema, No Severe Errythema, No Induration, No Other Breast: No No Masses, No No Nipple Discharge, No No Skin Changes, No Other Assessment and Plan Assessment and Plan Tez Olmstead is a pleasant 57-year-old gentleman with 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 On treatment with Brentuximab only second dose today after the break due to EF in the 20-25%. Patient is seen at the infusion center for his treatment. he reports feeling great! he informs me that he went camping and fishing this Friday, and he did tolerate it very Well. Reports minimal SOB on exertion especially when bending over. But he feels that his symptoms have significantly improved and he is ready to go back to work. I did write a workers note clearing Tez Olmstead to return to work with reasonable accommodation by Friday06/08/2018. Patient is hemodynamically stable, afebrile. Diagnostic Data - 01/29/18 cardiac catheterization which showed an EF of 35% - 01/19/2018 ESTIMATED EJECTION FRACTION: 51% - 04/15/18 EF=20-25% 2D Echo CBC show WBC of 6.9; hemoglobin of 15.0; hematocrit of 42.8; absolute neutrophil count of 4.7; chemistry panel BUN 23, creatinine 0.90; phosphorus 4.2 ; total protein 6.7; albumin 4.1; 1. Stage BRANDT classical Hodgkin lymphoma, nodular sclerosis subtype. on treatment with Brentuximab only cycle#8 today. He was not a candidate for an anthracycline, patient did not receive bleomycin given his cardiopulmonary status. Plan for 4 more doses of brentuximab. He did require a 20% dose reduction due to side effects starting with cycle two , and Neulasta was held due to reported significant side effects from that as well. Overall he is very happy with how he is progressing, with treatment. he informs me that he feels much better. His night swats have completely gone, he reports right leg pain for 10-20 minutes alleviated by rest. 2. Congestive heart failure. of unknown etiology. well controlled. cardiology on board. We will obtain a 2d echo after Completion of treatment. cardiac catheterization which showed an EF of 35%. Patient is asymptomatic. He does not have edema, he stopped taking Lasix approximately in FebruaryJanuary 2018. he denies SOB, night time cough, No dyspnea on exertion or PND ( paroxysmal nocturnal dyspnea). He reports sleeping with only one pillow at night. he informs me that apart from the pain on his right leg, he is able to walk for hours without major problems. His informs me that he has been eating salt with lemon and saltines, education reinforced to keep a low sodium diet. He is on Rx for kqkaqrpcssm19.5mg PO Daily and Lisinopril 2.5mg PO daily as of 02/17/2018. He has both heart failure and liver involvement. 3. Chemo induced Pancytopenia. counts recovered to date, in the setting of antineoplastic chemotherapy.patient on Levaquin ppx and Bactrim. will continue to monitor counts tightly. 4. Right Leg Pain. improved with physical therapy. PET scan done on 05/15/18 showed significant improvement of disease. PLAN - Proceed with Brentuximab only cycle#8 today06/02/2018 as planned -Resting MUGA scan STAT, per Dr. Portillo Cardio Recs, given 2D echo EF in the 20 -25%; Hx of Heart Failure -Repeat 2d echo after last dose of brentuximab in approximately four months October 2018. - Plan for Neupogen administration if counts not recovering with next labs -Consider resuming growth factors with next round of chemo, combined with tylenol 325mg and Claritin for bone pain - Will Continue Bactrim DS 1 tab Po Daily starting today 04/20/18 - Tez Olmstead to return to work with reasonable accommodation by Friday06/08/2018. - RTC PRN, contact center with any issues or concerns. - PET scan done on 05/15/18 showed significant improvement of disease. -Education, patient instructed to go to ER immediately and or call Clinic if any Shortness of Breath, Temp >/=100.4, fevers, chills, cardiac type chest pain , bleeding, excessive bruising, headaches, blurry vision, dizziness, abdominal pain, difficulty swallowing, and pain unrelieved by medication. TIME SPENT: 30 minutes> 25 minutes includes but not limited to discussion, counselling and co-ordination~ of care. Discussion with other health care providers, record review, review of lab work, diagnostic tests. Plan discussed extensively with patient. All the questions answered today. Thank you for the opportunity to be involved in the care of Tez Olmstead. Billing Level: Return visit 4 SHELBY LIM, ONC Jun 02, 2018 10:25
[2018-06-02 11:14] VITALS: BP 128/90
[2018-06-09 15:40] VITALS: BP 125/74
[2018-06-15 14:32] LABS: PLATELET COUNT, AUTOMATED 189 K/uL (150-450)
--- NOTE | 2018-06-16 22:50 | [facility] ONCOLOGY NOTE ---
EVENT DATE: June 15, 2018 CHIEF COMPLAINT/REASON FOR VISIT Mr. Payton is a pleasant, 58-year-old gentleman with classical nodular sclerosing Hodgkin lymphoma, here for followup on brentuximab alone. HISTORY OF PRESENT ILLNESS Mr. Payton returns. Please see my note from January 19, 2018, as well as notes from [place] for more details. In short, we utilized brentuximab instead of bleomycin given his heart history as we could not utilize anthracyclines with the suppressed ejection fraction. We do not have an exact etiology for his heart failure, and there may be a component due to liver infiltration of lymphoma causing increased afterload leading to heart failure. However, he developed worsening ejection fraction at approximately the half way point of his therapy with AAVD. He felt considerably worse, and we have had to drop the chemotherapy and plan to finish the total of 12 doses with brentuximab alone. Overall, he is doing much better. I am hopeful that his ejection fraction recovers to where he would not need to consider a pacemaker. If it is required, it would be safe, however. His labs look much better, and we can stop the prophylactic antibiotics including Levaquin and Bactrim. His absolute lymphocyte count is normal, and so I do not believe we need to use acyclovir either. Overall, he is doing well today. He is very pleased with how he is doing. He returned back to work last week. Some mild issues with fatigue, but he is working very hard and was able to climb nine stories in a building without any difficulty and minimal shortness of breath. He had a recent PET scan at the interim point which showed essentially complete remission. We plan to get another PET scan off there approximately a month after his treatment is done. PAST MEDICAL HISTORY 1. Bonilla palsy. 2. History of hernia repair. 3. Cholecystectomy. 4. Nodular sclerosis, classical Hodgkin lymphoma, with involvement of the liver, stage IV. Plan for 12 doses of chemotherapy. Avoiding bleomycin due to his heart history as well as avoiding anthracyclines due to his suppressed EF. FAMILY HISTORY Cancer in the sister. SOCIAL HISTORY Patient is . He has presented with his . Former smoker, quit in 1977. REVIEW OF SYSTEMS CONSTITUTIONAL: No fever, fatigue, chills, significant weight change. HEENT: No headache or vision changes. LYMPHATIC: No concerning lumps or bumps. CARDIOVASCULAR: No chest pain, dyspnea on exertion, or edema. His heart exam seems normal, and he feels well. RESPIRATORY: No shortness of breath, wheeze, or cough. GASTROINTESTINAL: No nausea or vomiting. ENDOCRINE: No heat or cold intolerance. PSYCHIATRIC: No anxiety or depression. SKIN: No concerning findings. MUSCULOSKELETAL: No abnormalities of concern. Remainder of 14-point review of systems otherwise negative. PHYSICAL EXAMINATION VITAL SIGNS: Blood pressure 110/72, pulse 95, respiratory rate 16, temperature 96.5 Fahrenheit, oxygen saturation 95% on room air. Weight 81.2 kg. Pain zero/10, fatigue zero/10 today. GENERAL: Stable condition, resting comfortably in the chair. HEENT: Normocephalic, atraumatic. CARDIOVASCULAR: Regular rate and rhythm. LUNGS: Clear. ABDOMEN: Soft, nontender. No masses. LYMPHATIC: No appreciable cervical, supraclavicular, or axillary adenopathy. Remainder of physical exam otherwise unremarkable. IMPRESSION AND PLAN Mr. Payton is a pleasant, 58-year-old gentleman with the followin. Stage IIIE classical Hodgkin lymphoma, nodular sclerosing subtype. He was not a candidate for anthracyclines or bleomycin given his cardiopulmonary status. He finished six of 12 doses of brentuximab, vinblastine, and dacarbazine. The first cycle was complicated by pneumonia. He did not tolerate Neulasta. His ejection fraction dipped below 30% at an interim check, and we have subsequently dropped the chemotherapy and plan to continue brentuximab alone. He was essentially PET negative at the [facility] point. Hopeful that this is curative chemotherapy, although given the modifications in therapy, it is hard to give him a percentage chance for cure. 2. Congestive heart failure, etiology not completely clear. He needs to continue the beta sal and PHILIP inhibitor even if they are in small doses. It would be acceptable to pursue a pacemaker, but I am hopeful with recovery from chemotherapy in treatment of his Hodgkin lymphoma that his ejection fraction will improve. I answered all of his many questions today. BILLING Return visit level 4. Total time 30 minutes, consult time 20. MTDD
[2018-06-23 13:59] VITALS: BP 120/69
[2018-06-23] MEDS: HEPARIN FLSH (PORT) 500 UN/5ML IVP PRN (14:16)
[2018-06-23] MEDS: NS(*) 0.9% 500 ML BAG 500 ML IV PRN (14:16)
[2018-06-23] MEDS: DEXAMETHASONE SOD PHOS 10MG/ML IVP PRN (14:58)
[2018-06-23 16:34] VITALS: BP 135/78
[2018-06-30 15:07] LABS: PLATELET COUNT, AUTOMATED 189 K/uL (150-450)
[2018-07-07 15:21] VITALS: BP 116/72
[2018-07-07 15:43] LABS: PLATELET COUNT, AUTOMATED 193 K/uL (150-450)
[~2018-07-14] VITALS: Ht 172.7 cm; Wt 84.5 kg
[~2018-07-14 13:57] MED LIST changes: +ACETAMINOPHEN 325 MG TAB PO PRN; +ALTEPLASE RECOMB 2 MG VIAL IVP PRN; +BRENTUXIMAB VEDOTIN IV ONE; +DEXTROSE 5%(*) 100 ML BAG 100 ML IVPB PRN; +FOSAPREPITANT DIM 150 MG/5 ML 150 MG in NS(*) 0.9% 250 ML BAG 245 ML IVPB PRN; +NAPR-1043 PO; +NS 0.9% IV ONE; +NS(*) 0.9% 10 ML VIAL 10 ML ONE; +NS(*) 0.9% 100 ML BAG 100 ML IVPB PRN; +PALONOSETRON 0.25 MG/5 ML VIAL IVP PRN; +SULF-198 PO; +WATER FOR INJ,STERILE 20 ML IVP PRN; +diphenhydrAMINE 25 MG CAP PO PRN
[2018-07-14 14:25] VITALS: BP 121/73
[2018-07-14] MEDS: LIDOCAINE/SOD BICARB 8.4% SYR ID PRN (14:25)
[2018-07-14] MEDS ORDERED: NS(*) 0.9% 250 ML BAG 250 ML IVPB ONE (15:00)
[2018-07-14] MEDS: DEXAMETHASONE SOD PHOS 10MG/ML IVP PRN (15:03)
--- NOTE | 2018-07-14 15:27 | Oncology Progress Note ---
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 Slightly decreased left ventricular ejection fraction with some akinesis along the apical portion of the interventricular septum as well as the apex of the left ventricle. The left ventricle is enlarged. The right ventricle is the upper range of normal in size if not slightly enlarged. The other chamber sizes are normal. 2. A trileaflet aortic valve with no aortic stenosis, minimal aortic sclerosis & a trace of aortic insufficiency. 3. A trace of mitral insufficiency with no mitral stenosis. 4. A mild amount of tricuspid insufficiency with estimated right ventricular systolic pressures of 54mm Hg which does include an estimated right atrial pressure of 3mm Hg indicating moderate pulmonary hypertension & increased right ventricular systolic pressures. 04/15/2018 2D echo done Impression The left ventricle is moderately dilated. There is mild concentric left ventricular hypertrophy. Considering 2-D visualization and technical calculations the left ventricle ejection fraction estimate is 20-25%. The anteroseptal wall is dyskinetic. The apex is akinetic. Compare to prior full 01/20/18. Essentially unchanged Treatment Treatment - Plan 12 doses of Atypical regimen with brentuximab, vinblastine and dacarbazine, since patient is not a candidate for Anthracyclines. -04/2018 Brentuximab single agent only x6 doses. 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 On treatment with Brentuximab cycle #10 today . Patient is seen at the [facility] for his treatment today accompany by his brother who is visiting from [place] patient reports feeling great! he informs me that he is been back to work since 06/08/18, doing very good, working and average of 8 hours shift. His heart seems to b getting stronger as he i nforms me that his SOB is significantly improving and he is able to climb a 12 flight of steps. Denies no weight loss, appetite okk. occasional fatigue the first 2-3 after chemo, but he recovers quickly. Patient is hemodynamically stable, afebrile. Apart from right leg pain ( improved with Physical therapy), and minimal fatigue denies no changes from his baseline, and reports no issues, no cardiac type chest pain, no changes in bladder or bowel pattern. Patient was not a candidate for anthracycline or bleomycin due to unknown etiology to heart failure and significant cardiopulmonary issues at diagnosis. Avoiding bleomycin due to his heart history and avoiding anthracyclines due to his suppressed EF. He follows with Dr. Harry in Cardiology last seen on 02/17/18. He is on Rx for [id number] PO Daily and Lisinopril 2.5mg PO daily as of 02/17/2018. He has both heart failure and liver involvement. of note significant PMH of Bonilla's palsy.History of hernia repair. Cholecystectomy. Nodular sclerosis 01/29/18 His echocardiogram here showed a slightly decreased ejection fraction at 51%. He then had a cardiac catheterization which showed an EF of 35% with normal coronary arteries. his lisinopril and metoprolol were placed on hold secondary to low blood pressures 93/55-88 [id number]. Living Conditions family and . Diagnostic Studies Result Diagram: 07/14/18 1418 07/14/18 1418 PMH Patient History: FH: dementia FATHER, , Age:82 MOTHER, , Age:90 FH: stroke MOTHER, , Age:90 Social/Occupational History Social History: Social History This is a 58 Yr old White male, he is S Single and has [] Children Hx Smoking: Yes Smoking Status: Former Smoker Exposure to Second Hand Smoke?: No When Quit Tobacco?: QUIT IN 1987 Allergies & Medications Allergies: Coded Allergies: No Known Drug Allergies (Verified , 01/28/18) Home Meds Active Scripts Lisinopril (LISINOPRIL) 5 Mg Tablet, 2.5 MG PO QDAY, #90 TAB 1 Refill Please use 2.5mg tablet if able Prov:YOSI ARIZMENDI MD 06/15/18 Metoprolol Succinate (METOPROLOL SUCCINATE) 25 Mg Tab.er.24h, 1 TAB PO QDAY, #90 TAB 1 Refill Take 0.5 tablet by mouth Prov:YOSI ARIZMENDI MD 06/15/18 Reported Medications Naproxen Sodium (ALEVE) 220 Mg Tablet, 220 MG PO TID, TAB 04/28/18 Acetaminophen (TYLENOL) 325 Mg Tablet, 325 MG PO, TAB 01/28/18 Review of Systems Constitution: Denies Appetite/Weight Change, Denies Fever/Chills/Sweating, Denies Recent Infection, Denies Other HEENT: No EARS: Tinnitus, No NOSE: Nasal Discharge, No THROAT: Sore Throat, No EYES: Dipolpia, No EARS: Hearing Problems, No NOSE: Epistaxis, No THROAT: Mouth Ulcers, No EYES: Vision Change, No OTHER Respiratory: No Cough, No Expectoration, No Hemoptysis, No Shortness of Breath, No OTHER Cardiovascular: No Chest Pain, No Orthopnea, No Edema, No Palpitations, No OTHER Gentiourinary: No Hematuria, No Dysuria, No Nocturia, No Other Musculoskeletal: Joint Pain (Right LEg) Hematological: No Bleeding, No Weakness, No Enlarged Lyph Nodes, No Bruising; Fatigue (minimal); No Other Skin: No Skin Rash, No Lumps, No Erythema, No Dry Skin, No Moist Skin, No Other Psychiatric: No Anxiety, No Depression, No Other Vital Signs Vital Signs Temperature: 97.9 Pulse: 79 BP Systolic: 121 BP Diastolic: 73 Respiratory Rate: 16 O2 SAT: 94 O2 Delivery: Height (feet) Height (inches) 68.00 Weight lb: 168 Weight oz: Weight Kg (Francisco): Pain: 0 ECOG-0 Physical Exam General: Looks Stable, Other (In no acute distress.) HEENT: HEAD:Atraumatic Lungs: Clear to Auscultation, Percussion Bilaterally Heart: Regular Rate and Rhythm; No Gallops, No Murmurs, No Clicks, No Rubs, No Other Abdomen: No Soft and Nontender, No Hepatosplenomegaly, No Masses, No Other Extremities: No Cyanosis, No Clubbing, No Edema; Other (Rigght leg pain.) Psychiatric: No Mood appears normal, No Affect appears normal, No Other Skin: No Skin Rashes, No Bruising, No Purpura, No Moist Desquamation, No Dry Desquamation, No Errythema, No Mild Errythema, No Moderate Errythema, No Severe Errythema, No Induration, No Other Breast: No No Masses, No No Nipple Discharge, No No Skin Changes, No Other Assessment and Plan Assessment and Plan Tez Olmstead is a very pleasant 58-year-old gentleman with 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 On treatment with Brentuximab cycle #10 today . Patient is seen at the [facility] for his treatment today accompany by his brother who is visiting from [place] patient reports feeling great! he informs me that he is been back to work since 06/08/18, doing very good, working and average of 8 hours shift. His heart seems to b getting stronger as he informs me that his SOB is significantly improving and he is able to climb a 12 flight of steps. Denies no weight loss, appetite okk. occasional fatigue the first 2-3 after chemo, but he recovers quickly. Patient is hemodynamically stable, afebrile. I had a good visit with patient today. he had additional questions in regards to flu vaccine, I recommended for patient to receive the flu vaccine when he returns to clinic for his lab draw, given active chemo treatment today. He verbalizes understanding rationale and agrees with the plan. Diagnostic Data - 01/29/18 cardiac catheterization which showed an EF of 35% - 01/19/2018 ESTIMATED EJECTION FRACTION: 51% - 04/15/18 EF=20-25% 2D Echo Reviewed per [facility] CBC ,chemistry panel within acceptable parameters 1. Stage BRANDT classical Hodgkin lymphoma, nodular sclerosis subtype. on treatment with Brentuximab only cycle#8 today. He was not a candidate for an anthracycline, patient did not receive bleomycin given his cardiopulmonary status. Plan for 4 more doses of brentuximab. He did require a 20% dose reduction due to side effects starting with cycle two, and Neulasta was held due to reported significant side effects from that as well. Overall he is very happy with how he is progressing, with treatment. he informs me that he feels much better. His night swats have completely gone, he reports right leg pain for 10-20 minutes alleviated by rest. 2. Congestive heart failure. of unknown etiology. well controlled. cardiology on board. We will obtain a 2d echo after Completion of treatment. 01/29/18 cardiac catheterization which showed an EF of 35%. Patient is asymptomatic. He does not have edema, he stopped taking Lasix approximately in FebruaryJanuary 2018. he denies SOB, night time cough, No dyspnea on exertion or PND ( paroxysmal nocturnal dyspnea). He reports sleeping with only one pillow at night. he informs me that apart from the pain on his right leg, he is able to walk for hours without major problems. His informs me that he has been eating salt with lemon and saltines, education reinforced to keep a low sodium diet. He is on Rx for jspvikxxtgi87.5mg PO Daily and Lisinopril 2.5mg PO daily as of 02/17/2018. He has both heart failure and liver involvement. 3. Chemo induced Pancytopenia. counts recovered to date, in the setting of anti neoplastic chemotherapy.. will continue to monitor counts tightly. 4. Right Leg Pain. improved with physical therapy. PET scan done on 05/15/18 showed significant improvement of disease. PLAN - Proceed with Brentuximab only cycle#10 today 07/14/2018 as planned - Repeat 2d echo after last dose of brentuximab in approximately four months October 2018. - Plan for patient to receive Flu shot given flu season with next labs drawn given acceptable counts - PET scan done on 05/15/18 showed significant improvement of disease. -Continue to f/u with MD/TAYLOR per protocol with cbc, cmp, uric acd, phosphorus, LDH - RTC PRN, contact center with any issues or concerns. -Education, patient instructed to go to ER immediately and or call Clinic if any Shortness of Breath, Temp >/=100.4, fevers, chills, cardiac type chest pain, bleeding, excessive bruising, headaches, blurry vision, dizziness, abdominal pain, difficulty swallowing, and pain unrelieved by medication. TIME SPENT: 30 minutes> 25 minutes includes but not limited to discussion, counselling and co-ordination~ of care. Discussion with other health care providers, record review, review of lab work, diagnostic tests. Plan discussed extensively with patient. All the questions answered today. Thank you for the opportunity to be involved in the care of Tez Olmstead. Billing Level: Return visit 4 SHELBY LIM, ONC Jul 14, 2018 15:27
[2018-07-14] MEDS ORDERED: BRENTUXIMAB VEDOTIN IV ONE (16:00)
[2018-07-14] MEDS ORDERED: NS 0.9% IV ONE (16:00)
[2018-07-14] MEDS: HEPARIN FLSH (PORT) 500 UN/5ML IVP PRN (16:27)
[2018-07-14 16:31] VITALS: BP 125/81
== END 2018-07-19 ==
LOC: ONC 13:57
PROVIDERS: ATTEND Internal Medicine
DX: Z51.11 Encounter for antineoplastic chemotherapy (principal); C81.18 Nodular sclerosis Hodgkin lymphoma, lymph nodes of multiple sites; I50.9 Heart failure, unspecified; D61.818 Other pancytopenia; M79.604 Pain in right leg
CPT/HCPCS: 36415; 83615; 84100; 84550; 85025; 85027; 96365; 96372; 96374; 96375; 96413; 99212; A9560; J1100; J1642; J2997; J7040; J7050; J9042; 78472; 82040; 82247; 82310; 82374; 82435; 82565; 82947; 84075; 84132; 84155; 84295; 84450; 84460; 84520

== ENCOUNTER 2018-08-10 16:19 | Outpatient (RCR) | payer BC ==
[2018-01-29 09:30] VITALS: BMI 27.7
--- NOTE | 2018-05-26 09:36 | PT PLAN OF CARE ---
Physician: Gladys Terry MD Patient is being seen: 1-2x/MO Therapist: Svetlana Sigala, PT, DPT, CLT Medical Diagnosis: Hodgkin's Lymphoma Treatment Diagnosis: Hodgkin's Lymphoma Date of Onset: 01/05/18 Date of Initial Evaluation: 02/10/18 Date patient was last seen: 05/26/18 Number of treatments: 7 Number of cancellations/No shows: 0 INTERVENTIONS: Manual Therapy/STM/MET Strengthening/condition Ice/Heat Range of Motion Spinal Stabilization Ultrasound Stretching Iontophoresis Neuromuscular Re-ed Closed Chain Program Electrical Stim Posture/Body mechanics Gait Trg/Balance Trg Biofeedback Home Exercise Program Mech./Manual Traction Therapeutic Activities Pelvic Floor GOALS: In 3 MO pt will improve ECOG performance level to grade 2 or less for improved functional mobility with ADL's and improved performance with ongoing oncological treatment. MET In 3 MO pt will increase B LE strength as tested by MMT to 4/5 or greater in all major motor groups for improved function with ADL's. In 3 MO pt will improve SLS balance to >10 seconds B for improved balance with ambulation and ADL's and decreased fall risk. In 6 MO pt will improve ECOG performance level to grade 2 or less for improved functional mobility with ADL's and improved performance with ongoing oncological treatment. In 6 MO pt will improve FACT-G score to >70/108 for improved function with ADL' s and well-being. PATIENT'S GOAL: Improve strength and stability with ongoing oncological treatment. Status of Patient's Goals: In Progress Patient Compliance: Good Prognosis: Good Reasons for continuing therapy: Tez shows good progress with maintenance of function with ongoing oncological intervention. Pt is excellent at keeping up with HEP recently adjusted to compensate for cardiac dysfunction without any complications. Additionally pt now feels he is able to return to work while continuing with treatment with improved body function. Pt remains to have lingering deficits including fatigue and occasional onset of sciatic nerve impingement in the piriformis. However, pain is decreased and pt is compliant with management. Further PT to continue to focus on maintaining function as well as addressing progress towards work related duties to decrease injury with increased demand. ROM: UE ROM WFL without pain. Strength: LE MMT: Hip: Flexion: B 3+/5, Ext: L 4/5, R 4+/5, Abd/Add: B 4/5. Knee : Flexion: B 4+/5, Ext: B 5/5. Ankle: PF: L 4/5, R 4+/5, DF: L 4+/5, R 5/5. Palpation: Pt no longer has LE swelling and has discontinued Lasix. Special Tests: FACT-G (Eval): PWB: , SWB: , EWB: 13.2, FWB: , Total: 66.2/108 FACT-G (03/10/18): PWB: 18, SWB: , EWB: 16.5, FWB: 15.03/16, Total: 71/108 FACT-G (04/07/18): PWB: 15, SWB: , EWB: , FWB: 10/16, Total: 63/ 108 FACT-G (05/26/18): PWB: 16, SWB: , EWB: , FWB: , Total: 70/ 108 Mobility: ECOG Performance Status: Grade 2-3 depending on the day If you have any questions or concerns, please feel free to contact me at . Thank you, Svetlana Sigala, PT, DPT, CLT CARLYLED
[~2018-08-10 16:19] MED LIST changes: -ACETAMINOPHEN 325 MG TAB PO PRN; -ALTEPLASE RECOMB 2 MG VIAL IVP PRN; -BRENTUXIMAB VEDOTIN IV ONE; -DEXTROSE 5%(*) 100 ML BAG 100 ML IVPB PRN; -FOSAPREPITANT DIM 150 MG/5 ML 150 MG in NS(*) 0.9% 250 ML BAG 245 ML IVPB PRN; -NS 0.9% IV ONE; -NS(*) 0.9% 10 ML VIAL 10 ML ONE; -NS(*) 0.9% 100 ML BAG 100 ML IVPB PRN; -PALONOSETRON 0.25 MG/5 ML VIAL IVP PRN; -WATER FOR INJ,STERILE 20 ML IVP PRN; -diphenhydrAMINE 25 MG CAP PO PRN
--- NOTE | 2018-08-10 17:12 | PT PLAN OF CARE ---
Physician: Gladys Terry MD Patient is being seen: 1x/MO Therapist: Svetlana Sigala, PT, DPT, CLT Medical Diagnosis: Hodgkin's Lymphoma Treatment Diagnosis: Hodgkin's Lymphoma Date of Onset: 01/05/18 Date of Initial Evaluation: 02/10/18 Date patient was last seen: 08/10/18 Number of treatments: 10 Number of cancellations/No shows: 0 INTERVENTIONS: Manual Therapy/STM/MET Strengthening/condition Ice/Heat Range of Motion Spinal Stabilization Ultrasound Stretching Iontophoresis Neuromuscular Re-ed Closed Chain Program Electrical Stim Posture/Body mechanics Gait Trg/Balance Trg Biofeedback Home Exercise Program Mech./Manual Traction Therapeutic Activities Pelvic Floor GOALS: In 3 MO pt will improve ECOG performance level to grade 2 or less for improved functional mobility with ADL's and improved performance with ongoing oncological treatment. MET In 3 MO pt will increase B LE strength as tested by MMT to 4/5 or greater in all major motor groups for improved function with ADL's. In 3 MO pt will improve SLS balance to >10 seconds B for improved balance with ambulation and ADL's and decreased fall risk. In 6 MO pt will improve ECOG performance level to grade 2 or less for improved functional mobility with ADL's and improved performance with ongoing oncological treatment. MET In 6 MO pt will improve FACT-G score to >70/108 for improved function with ADL's and well-being. PATIENT'S GOAL: Improve strength and stability with ongoing oncological treatment. Status of Patient's Goals: In Progress Patient Compliance: Good Prognosis: Good Reasons for continuing therapy: Tez shows good progression with return back to work with associated increased functional mobility and strength. Pt no longer is experiencing R hip or back pain, though remains to have neuropathy in fingers and toes. Pt shows good awareness of maintenance and progression with exercise with attention to orthostatic hypotension with decreased cardiac response. Pt to complete his last round of chemo next month and be evaluated at that time for progression to survivorship treatment for return to full prior level of function. ROM: UE ROM WFL without pain. Strength: LE MMT: Hip: Flexion: B 3+/5, Ext: L 4/5, R 4+/5, Abd/Add: B 4/5. Knee: Flexion: B 4+/5, Ext: B 5/5. Ankle: PF: L 4/5, R 4+/5, DF: L 4+/5, R 5/5. Special Tests: FACT-G (Eval): PWB: , SWB: , EWB: 13.2, FWB: , Total: 66.2/108 FACT-G (03/10/18): PWB: 18, SWB: , EWB: 16.5, FWB: 15.03/16, Total: 71/108 FACT-G (04/07/18): PWB: 15, SWB: , EWB: , FWB: 10/16, Total: 63/108 FACT-G (05/26/18): PWB: , SWB: , EWB: , FWB: , Total: 70/108 FACT-G (08/10/18): PWB: , SWB: , EWB: , FWB: , Total: 81/108 Mobility: ECOG Performance Status: Grade 1-2 depending on the day If you have any questions or concerns, please feel free to contact me at [phone]. Thank you, Svetlana Sigala, PT, DPT, CLT MTDD
== END 2018-08-24 ==
LOC: PT 16:19
PROVIDERS: ATTEND Internal Medicine Hematology
DX: C81.90 Hodgkin lymphoma, unspecified, unspecified site (principal); R53.1 Weakness; R60.0 Localized edema; Z90.49 Acquired absence of other specified parts of digestive tract

== ENCOUNTER 2018-09-23 09:47 | Outpatient (RCR) | payer BC ==
[2018-01-29 09:30] VITALS: Ht 174 cm; Wt 88.4 kg
[2018-07-21 15:00] VITALS: BP 120/74
[2018-07-21 15:18] LABS: PLATELET COUNT, AUTOMATED 203 K/uL (150-450)
[2018-07-28 15:13] VITALS: BP 121/77
[2018-07-28 15:32] LABS: PLATELET COUNT, AUTOMATED 181 K/uL (150-450)
[2018-08-04 14:01] VITALS: BP 121/73
[2018-08-04] MEDS: NS(*) 0.9% 500 ML BAG 500 ML IV PRN (14:07)
[2018-08-04] MEDS: LIDOCAINE/SOD BICARB 8.4% SYR ID PRN (14:07)
[2018-08-04] MEDS: DEXAMETHASONE SOD PHOS 10MG/ML IVP PRN (14:54)
[2018-08-04] MEDS: HEPARIN FLSH (PORT) 500 UN/5ML IVP PRN (15:46)
[2018-08-04 15:47] VITALS: BP 122/76
[2018-08-10 15:08] VITALS: BP 117/75
[2018-08-10 15:23] LABS: PLATELET COUNT, AUTOMATED 184 K/uL (150-450)
--- NOTE | 2018-08-11 14:54 | [facility] ONCOLOGY NOTE ---
DATE OF VISIT: August 10, 2018 CHIEF COMPLAINT/REASON FOR VISIT Mr. Payton is a very pleasant 58-year-old gentleman with stage BRANDT classic nodular sclerosing Hodgkin lymphoma as well as heart failure. Here for followup, on brentuximab alone. HISTORY OF PRESENT ILLNESS Mr. Payton returns. Please see my note from January 19 as well as notes from [place] for more details. In short, we utilized brentuximab instead of bleomycin given his heart history as we could not utilize anthracyclines with the suppressed ejection fraction. We do not have an exact etiology for his heart failure, but I am concerned there may be a component due to lymphoma with liver infiltration causing increased afterload leading to heart failure. However, he developed worsening ejection fraction at approximately the long-term point of his therapy with AAVD as well. He felt considerably worse, and we had to drop the chemotherapy with plans to finish the 12 doses with only brentuximab. Overall, he is doing quite well. He is back at work. We do not have an exact cure rate because we are not able to give the full chemotherapy. His absolute lymphocyte count is improved. Overall, he doing quite well. No fevers, chills. His interim scan was near CR, and we plan to get another PET scan at the conclusion of therapy. PAST MEDICAL HISTORY 1. Bonilla palsy. 2. History of hernia repair. 3. Cholecystectomy. 4. Nodular sclerosis, classical Hodgkin lymphoma, with involvement of the liver, stage IV. Plan for 12 doses of chemotherapy. Avoiding bleomycin due to his heart history as well as avoiding anthracyclines due to his suppressed EF. FAMILY HISTORY Cancer in the sister. SOCIAL HISTORY Patient is . He has presented with his . Former smoker, quit in 1977. REVIEW OF SYSTEMS CONSTITUTIONAL: No fever, fatigue, chills, significant weight change. HEENT: No headache or vision changes. LYMPHATIC: No concerning lumps or bumps. CARDIOVASCULAR: No chest pain, dyspnea on exertion, or edema. His heart exam seems normal, and he feels well. RESPIRATORY: No shortness of breath, wheeze, or cough. GASTROINTESTINAL: No nausea or vomiting. ENDOCRINE: No heat or cold intolerance. PSYCHIATRIC: No anxiety or depression. SKIN: No concerning findings. MUSCULOSKELETAL: No abnormalities of concern. Remainder of 14-point review of systems otherwise negative. PHYSICAL EXAMINATION VITAL SIGNS: Blood pressure 117/75, pulse 100, respiratory rate 16, temperature 98.9 Fahrenheit, oxygen saturation 94% on room air. Weight 86.7 kg. Pain 0/10, fatigue 6/10. GENERAL: Stable condition, resting comfortably in the chair. HEENT: Normocephalic, atraumatic. CARDIOVASCULAR: Regular rate and rhythm today. ABDOMEN: Soft, nontender. LYMPHATIC: No appreciable cervical, supraclavicular, or axillary adenopathy. Remainder of the physical exam otherwise unremarkable. IMPRESSION AND PLAN Mr. Payton is a pleasant, 58-year-old gentleman with the followin. Stage IIIE classical Hodgkin lymphoma, nodular sclerosing subtype. He was not a candidate for anthracyclines or bleomycin given his cardiopulmonary status. He finished six of 12 doses of brentuximab, vinblastine, and dacarbazine. The first cycle was complicated by pneumonia. He did not tolerate Neulasta. His ejection fraction dipped below 30% at an interim check, and we have subsequently dropped the chemotherapy and plan to continue brentuximab alone. He was essentially PET negative at the long-term point. Hopeful that this is curative chemotherapy, although given the modifications in therapy, it is hard to give him a percentage chance for cure. 2. Congestive heart failure, etiology not completely clear. He needs to continue the beta sal and PHILIP inhibitor even if they are in small doses. It would be acceptable to pursue a pacemaker, but I am hopeful with recovery from chemotherapy in treatment of his Hodgkin lymphoma that his ejection fraction will improve. 3. We will arrange for a PET scan approximately six weeks after the conclusion of therapy, and I will see him at that time. BILLING Return visit level 3. Total time 20 minutes, counseling time 15. MTDD
[2018-08-17 15:35] VITALS: BP 117/72
[2018-08-17 15:55] LABS: PLATELET COUNT, AUTOMATED 203 K/uL (150-450)
[2018-08-25 14:26] VITALS: BP 127/82
[2018-08-25] MEDS: LIDOCAINE/SOD BICARB 8.4% SYR ID PRN (15:00)
[2018-08-25] MEDS: NS(*) 0.9% 500 ML BAG 500 ML IV PRN (15:00)
[2018-08-25] MEDS: DEXAMETHASONE SOD PHOS 10MG/ML IVP PRN (15:00)
[2018-08-25] MEDS: HEPARIN FLSH (PORT) 500 UN/5ML IVP PRN (15:00)
[2018-08-25 15:59] VITALS: BP 125/72
[2018-09-01 15:43] VITALS: BP 123/85
[2018-09-01 15:46] LABS: PLATELET COUNT, AUTOMATED 194 K/uL (150-450)
[2018-09-08 15:07] VITALS: BP 124/74
[2018-09-08 15:14] LABS: PLATELET COUNT, AUTOMATED 200 K/uL (150-450)
[2018-09-15 15:12] VITALS: BP 134/93
[2018-09-15 15:27] LABS: PLATELET COUNT, AUTOMATED 214 K/uL (150-450)
[2018-09-22 14:51] VITALS: BP 123/79
[2018-09-22 15:21] LABS: PLATELET COUNT, AUTOMATED 216 K/uL (150-450)
[~2018-09-23] VITALS: Ht 174 cm; Wt 88.4 kg
[~2018-09-23 09:47] MED LIST changes: +ALTEPLASE RECOMB 2 MG VIAL IVP PRN; +BRENTUXIMAB VEDOTIN IV ONE; +DEXTROSE 5%(*) 100 ML BAG 100 ML IVPB PRN; +NS 0.9% IV ONE; +NS(*) 0.9% 100 ML BAG 100 ML IVPB PRN; +WATER FOR INJ,STERILE 20 ML IVP PRN
[2018-09-23 09:59] VITALS: BP 122/73
--- NOTE | 2018-09-24 02:24 | [facility] ONCOLOGY NOTE ---
EVENT DATE: September 23, 2018 CHIEF COMPLAINT/REASON FOR VISIT Mr. Payton is a very pleasant 58-year-old gentleman with stage BRANDT classic nodular sclerosing Hodgkin lymphoma as well as heart failure. I believe he had liver and spleen involvement at diagnosis. Here for followup. HISTORY OF PRESENT ILLNESS Mr. Payton returns. Please my note from January 19 as well as notes from [place] for more detail. In short, we utilized brentuximab instead of bleomycin, given his heart history, as we could not utilize anthracyclines with the suppressed ejection fraction. We do not have an exact etiology for his heart failure, but I am concerned that there may be a component due to lymphoma with liver infiltration causing increased afterload, leading to heart failure. He follows up with Cardiology in January. He developed worsening ejection fraction at approximately the usp point of his therapy with AAVD as well. He felt considerably worse, and we had to drop the chemotherapy and finished the 12 doses with only brentuximab. His PET scan shows CR after an interim scan showing near CR. His counts look well. We do not have an exact cure rate because we have not been able to give the full chemotherapy, so I am very concerned about risk of relapse. We will be checking him every three months for at least the first year and possibly first two years. The patient states that he is feeling much better, except for when he takes his blood pressure medications, he does have lightheadedness at times. I am concerned that he no longer needs these medicines; however, an PHILIP inhibitor and beta sal are considered standard in cases of heart failure. We do not have an echocardiogram planned until the spring. He is not tolerating it, though, and so he is going to separate the pills and take one in the morning and one in the evening. If only one makes him feel unwell, we will stop it. If he takes it this way and feels much better, we will continue with this split dosing. PAST MEDICAL HISTORY 1. Bonilla palsy. 2. History of hernia repair. 3. Cholecystectomy. 4. Nodular sclerosis, classical Hodgkin lymphoma, with involvement of the liver, stage IV. Plan for 12 doses of chemotherapy. Avoiding bleomycin due to his heart history as well as avoiding anthracyclines due to his suppressed EF. FAMILY HISTORY Cancer in the sister. SOCIAL HISTORY Patient is . He has presented with his . Former smoker, quit in 1977. REVIEW OF SYSTEMS CONSTITUTIONAL: No fever, fatigue, chills, significant weight change. HEENT: No headache or vision changes. LYMPHATIC: No concerning lumps or bumps. CARDIOVASCULAR: No chest pain, dyspnea on exertion, or edema. His heart exam seems normal, and he feels well. RESPIRATORY: No shortness of breath, wheeze, or cough. GASTROINTESTINAL: No nausea or vomiting. ENDOCRINE: No heat or cold intolerance. PSYCHIATRIC: No anxiety or depression. SKIN: No concerning findings. MUSCULOSKELETAL: No abnormalities of concern. Remainder of 14-point review of systems otherwise negative. PHYSICAL EXAMINATION VITAL SIGNS: Blood pressure 122/73, pulse 84, respiratory rate 16, temperature 97.6 Fahrenheit, oxygen saturation 92% on room air. Weight 88.4 kg. Pain 0/10, fatigue 0/10. GENERAL: Stable condition, resting comfortably in the chair. CARDIOVASCULAR: Regular rate and rhythm today. No murmur. Slightly distant heart sounds, likely due to body habitus. ABDOMEN: Soft, nontender. EXTREMITIES: No clubbing, cyanosis, or edema. LYMPHATIC: No appreciable adenopathy. Remainder of the physical exam otherwise unremarkable. IMPRESSION/REPORT/PLAN Mr. Payton is a pleasant 58-year-old gentleman with the followin. Stage BRANDT classical Hodgkin lymphoma, nodular sclerosing subtype. He was not a candidate for anthracyclines or bleomycin given his cardiopulmonary status at diagnosis. He finished six of 12 doses with brentuximab, vinblastine, and dacarbazine. The first cycle was complicated by pneumonia. He did not tolerate Neulasta. His ejection fraction dipped below 30% at analysis, and we subsequently dropped the vinblastine and dacarbazine and finished the last six doses with brentuximab alone. His PET scan was essentially negative at the usp point and was in complete remission at the end. High risk of relapse, though, given the suboptimal treatment plan. 2. Congestive heart failure, etiology not completely clear. Recommend continuing beta sal and PHILIP inhibitor at small doses, but he does not feel well on this. He is going to split the doses, with taking one in the morning and the other in the afternoon, to see how that helps him. If he continues to have problems, we may need to discontinue one. He has followup with Cardiology in the New Year. 3. It is time to remove the port. This was done by Dr. Robertson in [place], and will try to arrange for followup with him ADARSH. I have answered all of his questions today. We are very pleased with his complete remission at this time. High risk of relapse, though. BILLING Return visit level 4. Total time 30 minutes, counseling time 20. MTDD
== END 2018-10-18 ==
LOC: ONC 09:47
PROVIDERS: ATTEND Internal Medicine
DX: C81.18 Nodular sclerosis Hodgkin lymphoma, lymph nodes of multiple sites (principal); I50.9 Heart failure, unspecified; Z87.891 Personal history of nicotine dependence
CPT/HCPCS: 36415; 83615; 84100; 84550; 85025; 85027; 96365; 96375; 99212; J1100; J1642; J7040; J7050; J9042; 82040; 82247; 82310; 82374; 82435; 82565; 82947; 84075; 84132; 84155; 84295; 84450; 84460; 84520

== ENCOUNTER → 2018-11-25 | Outpatient (CLI) | payer BC ==
[2018-01-29 09:30] VITALS: BMI 27.7
[~2018-11-25] MED LIST changes: -ALTEPLASE RECOMB 2 MG VIAL IVP PRN; -BRENTUXIMAB VEDOTIN IV ONE; -DEXTROSE 5%(*) 100 ML BAG 100 ML IVPB PRN; -NS 0.9% IV ONE; -NS(*) 0.9% 100 ML BAG 100 ML IVPB PRN; -WATER FOR INJ,STERILE 20 ML IVP PRN
[2018-11-25 08:43] LABS: PLATELET COUNT, AUTOMATED 169 K/uL (150-450)
[2018-11-25 09:52] LABS: LDL CHOLESTEROL 84 mg/dl
== END ==
LOC: LAB 08:17
PROVIDERS: ATTEND Emergency Medicine
DX: Z12.5 Encounter for screening for malignant neoplasm of prostate (principal); Z00.00 Encounter for general adult medical examination without abnormal findings; I50.22 Chronic systolic (congestive) heart failure
CPT/HCPCS: 36415; 82040; 82247; 82310; 82374; 82435; 82465; 82565; 82947; 83036; 83718; 84075; 84132; 84153; 84155; 84295; 84450; 84460; 84478; 84520; 85025

== ENCOUNTER → 2018-11-30 | Outpatient (CLI) | payer BC ==
[2018-01-29 09:30] VITALS: BMI 27.7
[~2018-11-30] MED LIST changes: +GABA-549 PO
== END ==
LOC: LAB 14:17
PROVIDERS: ATTEND Emergency Medicine
DX: G62.9 Polyneuropathy, unspecified (principal)
CPT/HCPCS: 36415; 84425

== ENCOUNTER 2018-12-23 07:21 | Outpatient (RCR) | payer BC ==
[2018-01-29 09:30] VITALS: BMI 27.7
== END 2018-12-24 16:48 | disposition home or self-care (01) ==
LOC: ONC 07:21
PROVIDERS: ATTEND Internal Medicine
DX: C81.18 Nodular sclerosis Hodgkin lymphoma, lymph nodes of multiple sites (principal)

== ENCOUNTER 2018-12-30 09:57 | Outpatient (RCR) | payer BC ==
[2018-01-29 09:30] VITALS: BMI 27.7
[2018-12-25 14:48] VITALS: BP 133/79
[2018-12-25 15:12] LABS: PLATELET COUNT, AUTOMATED 168 K/uL (150-450)
[2018-12-30] MEDS ORDERED: ASPI-757 PO (10:13)
[2018-12-30 10:14] VITALS: BP 119/73
--- NOTE | 2018-12-30 12:46 | ONCOLOGY FOLLOW UP NOTE ---
EVENT DATE: December 30, 2018 DIAGNOSES 1. 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 2. Congestive heart failure. CHIEF COMPLAINT Mr. Payton is here today for ongoing oncology care regarding his Hodgkin lymphoma. HISTORY OF PRESENT ILLNESS Mr. Payton is here today for ongoing followup. He sees Dr. Mayfield in [facility] as well and further details can be noted on his followup note from January 19, 2018. We utilized brentuximab instead of bleomycin, given his heart history, as we could not utilize anthracyclines with the suppressed ejection fraction. We do not have an exact etiology for his heart failure, but I am concerned that there may be a component due to lymphoma with liver infiltration causing increased afterload, leading to heart failure. He follows up with Cardiology in January. He developed worsening ejection fraction. We do not have an exact etiology for his heart failure but we are concerned that there may be a component due to his lymphoma with liver infiltration causing increased after-load, leading to heart failure. He has had followup with Cardiology, although patient cannot recall the name of the clinical account manager. He is scheduled to follow up again next month. He developed worsening ejection fraction approximately detention throughout therapy with AAVD as well. He felt considerably worse and we had to discontinue the chemotherapy and finish the 12 doses with only brentuximab. His PET scan shows CR after an interim scan showing near CR. His counts look well. We do not have an exact cure rate because we have not been able to give the full chemotherapy so we are concerned about risk of relapse. We are following up with him every three months, which we plan to do for the first year and possibly the first two years. He was diagnosed on December 29, 2017. Patient states that he has been feeling quite well. He is antihypertensive, although at last visit he reported some tolerance issues in the form of lightheadedness. He is currently on an PHILIP inhibitor and beta sal and he is aware that these are standard in cases of heart failure. He will be seeing Cardiology next month and they will be performing a repeat echocardiogram. He follows up with Dr. William mock, his PCP. 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 He tells me that he is out-walking and out-working some of the younger men at work. He has not had any fever or infection. No changes in appetite and his only complaint is ongoing neuropathy, mostly in his feet. This has been noticeable since chemotherapy. He reports that this ranges from anywhere from mild to severe, although is no longer on gabapentin as this did not really seem to make any difference and he is also concerned about daytime lethargy secondary to gabapentin. He does report that the colder weather actually improves his neuropathy symptoms. PAST MEDICAL HISTORY 1. Bonilla palsy. 2. History of hernia repair. 3. Cholecystectomy. 4. Nodular sclerosis, classical Hodgkin lymphoma, with involvement of the liver, stage IV. Plan for 12 doses of chemotherapy. Avoiding bleomycin due to his heart history as well as avoiding anthracyclines due to his suppressed EF. FAMILY HISTORY Cancer in the sister. SOCIAL HISTORY Patient is . He has presented with his . Former smoker, quit in 1977. ALLERGIES No known drug allergies. MEDICATIONS 1. Lisinopril 5 mg tablet, 2.5 mg daily. 2. Metoprolol succinate ER 25 mg 1 p.o. q. day. 3. Acetaminophen 325 mg 1 p.o. p.r.n. REVIEW OF SYSTEMS A 12-point review of systems is performed and is negative other than what is stated above and immediately following. CONSTITUTIONAL: Patient denies any recent ever, chills, night sweats or changes in weight or appetite. He reports good energy and tells me that he is largely feeling "great". HEENT: No vision changes. No headaches. No oral lesions or ulcerations. RESPIRATORY: He denies any cough, shortness of breath, wheezes or hemoptysis. CARDIOVASCULAR: He denies any chest pain, dyspnea on exertion, presyncope or syncope. He reports that he has been told in the past that he has skipped heartbeats. He does not notice any symptoms. GASTROINTESTINAL: He denies any abdominal pain, nausea, vomiting, constipation, diarrhea, bright red blood per rectum, melena. He reports good appetite. MUSCULOSKELETAL: He denies any significant or focal areas of pain. PSYCHIATRIC: He denies any severe anxiety, severe depression, suicidal or homicidal ideation. He reports good support with his girlfriend of the last six to eight years. He helped her throughout chemotherapy. NEURO: No headaches or focal symptoms. He does have ongoing neuropathy noted in his bilateral feet in the form of numbness and tingling. Cold makes it better. No new symptoms. ENDOCRINE: He denies any heat or cold intolerance. His energy level is excellent. PHYSICAL EXAMINATION VITAL SIGNS: Weight 90.80 kg two weeks ago, T 98.0 degrees Fahrenheit, P 96, R 16, BP 119/73, oxygen saturation 92% on room air. GENERAL: This is a pleasant 58-year old gentleman who appears well-hydrated, well-nourished and is in no acute distress. HEAD: Normocephalic, atraumatic. EYES: Sclerae anicteric. ENT/MOUTH: No mucositis. No suspicious lesions. NECK: Supple. No lymphadenopathy. No JVD. LUNGS: Clear breath sounds to auscultation bilaterally. Chest expansion is symmetrical. Respiratory effort is normal. CARDIOVASCULAR: Mildly tachycardic today with normal rhythm. No murmur. Heart sounds are slightly distant, however, likely related to body habitus. ABDOMEN: Soft, nontender, nondistended. EXTREMITIES: No edema. No clubbing or cyanosis. LYMPHATIC: No adenopathy to include no cervical, supraclavicular, axillary or inguinal adenopathy. NEURO: Patient is awake, alert and oriented x3. PSYCH: Patient is in good spirits. Mood and affect are appropriate. LABORATORY CBC on December 25, 2018: WBC 7.0, ANC 4.2, hemoglobin 15.7, hematocrit 45.4%, platelets 158,000. CMP on the same date revealed normal sodium at 139, normal potassium 4.4, BUN somewhat elevated at 23 with an elevated serum creatinine of 1.4. This has increased from his last visit at 0.90 and 1.0 back in September, respectively. Of note, patient tells me that he was not drinking enough water at the time. Calcium normal at 9.2. Total bilirubin normal at 1.1. AST normal at 32. ALT normal at 44. Alkaline phosphatase normal at 103, LDH normal at 435. Total protein normal at 6.9 and albumin normal at 4.3. Immunoglobulin levels on the same date of service were normal to include normal IgG at 1190, normal IgA at 233, normal IgM at 62. IMPRESSION/REPORT/PLAN Mr. Payton is a pleasant 58-year-old gentleman with stage BRANDT classical Hodgkin lymphoma, nodular sclerosing subtype. He was not a candidate for anthracyclines or bleomycin given his cardiopulmonary status at diagnosis. He finished 6 of 12 doses with brentuximab, vinblastine and dacarbazine. The first cycle was complicated by pneumonia. He did not tolerate Neulasta. His ejection fraction [id number] down below 30% at analysis and we subsequently dropped the chemotherapy, to include vinblastine and dacarbazine, and completed the last six doses of treatment with brentuximab alone. His PET scan was essentially negative at the detention point and was in complete remission at the end. He is at high risk of relapse, however, given his suboptimal treatment plan. He also has congestive heart failure with unclear etiology. He is being managed by cardiology as well as his PCP. 1. Stage BRANDT classical Hodgkin lymphoma, nodular sclerosing subtype. As stated above, patient received suboptimal treatment secondary to his cardiopulmonary status at diagnosis. He is at high-risk for relapse and, as such, we need to continue to follow him at least every three months. Initially, we plan to follow him at least every three months for the first year and even up to the second year. He is now just one year out from diagnosis and our plan is to continue with every two month followup. 2. Congestive heart failure: Patient remains on beta sal and PHILIP inhibitor. He has split the doses and reports that he is tolerating this better. He has seen Cardiology and has followup next month. He cannot recall the name. He tells me that he is planning on following up and also tells me that he has a planned and scheduled echocardiogram next month with his clinical account manager. Currently, he is asymptomatic from his congestive heart failure but I did explain the importance. 3. Neuropathy, secondary to chemotherapy: Persists, although is at baseline. He is no longer on gabapentin as this was not beneficial per patient. He has seen Dr. Thomas about this. Duloxetine is also an option, although when he last saw his PCP he did not feel he needed it. Today, he tells me he does not feel he needs any medications and will continue to monitor this and let us know if this worsens. We did discuss taking [id number] vitamins to help. 4. Patient has his Port-A-Cath removed after his last visit in September. The area has healed well to the right chest wall. 5. We reviewed his most recent labs, which were done last week. He did have a mildly elevated serum creatinine, although he tells me that he is certain that he was not hydrating well enough. He reports normal urination and reports he is drinking much better now. We will monitor this at his next visit. 6. Patient will return to the clinic in three months for followup with MD and we will plan for repeat labs approximately one week prior to that visit. Labs to include CBC, CMP, LDH and immunoglobulin levels. 7. Patient may certainly follow up sooner should the need arise. SHIREEN
== END 2019-03-25 ==
LOC: ONC 09:57
PROVIDERS: ATTEND Internal Medicine
DX: C81.18 Nodular sclerosis Hodgkin lymphoma, lymph nodes of multiple sites (principal); I50.9 Heart failure, unspecified; Z92.21 Personal history of antineoplastic chemotherapy; G62.0 Drug-induced polyneuropathy; T45.1X5A Adverse effect of antineoplastic and immunosuppressive drugs, initial encounter
CPT/HCPCS: 36415; 82040; 82247; 82310; 82374; 82435; 82565; 82784; 82947; 83615; 84075; 84132; 84155; 84295; 84450; 84460; 84520; 85025; 99212

== ENCOUNTER → 2019-01-20 | Outpatient (CLI) | payer BC ==
[2018-01-29 09:30] VITALS: BMI 27.7
[~2019-01-20] MED LIST changes: +ASPI-757 PO
== END ==
LOC: US 06:53
PROVIDERS: ATTEND Internal Medicine
DX: I51.7 Cardiomegaly (principal); R29.898 Other symptoms and signs involving the musculoskeletal system
CPT/HCPCS: 93306

== ENCOUNTER → 2019-06-10 | Outpatient (CLI) | payer BC ==
[2018-01-29 09:30] VITALS: BMI 27.7
[~2019-06-10] MED LIST changes: +IOPAMIDOL 76% 100 ML INFUS BTL 100 ML ONE
--- NOTE | 2019-06-10 13:24 | RADIOLOGY IMAGING REPORT ---
FACILITY: [facility] PATIENT NAME: Tez Payton : 1960 MR: [id number] V: [id number] EXAM DATE: ORDERING PHYSICIAN: JOHNY MARTIN TECHNOLOGIST: Location: [facility] Patient: Tez Payton : 1960 Visit/Account:[id number] Date of Sevice: 06/10/2019 EXAMINATION: CT Chest With Contrast CT Abdomen With Contrast CT Pelvis With Contrast 06/10/2019 11:30 AM HISTORY: Hodgkin's lymphoma. Night sweats. Nausea. TECHNIQUE: Spiral scan was obtained through the chest, abdomen and pelvis during injection of nonio hieu iodinated intravenous contrast. Contrast: 75 mL of IV Isovue 370. One of the following dose optimization techniques was utilized in the performance of this exam: Autom ated exposure control; adjustment of the mA and/or kV according to the patient's size; or use of an i terative reconstruction technique. Specific details can be referenced in the facility's radiology C T exam operational policy. COMPARISON STUDIES: CT abdomen and pelvis which images the lung bases 12/29/2017. Chest x-ray 2017. PET/CT from [place] 09/16/2018. FINDINGS: CHEST: Lungs / pleura: Negative Mediastinum / larry: negative Heart / pericardium: Minimal fluid in superior pericardial recesses. Vessels: Mild atherosclerosis including mild coronary calcification, not unexpected for age. Musculoskeletal / Body wall: Degenerative spurring in the spine. Lymph node assessment: Negative. No lymphadenopathy. Lower neck: negative ABDOMEN AND PELVIS: Liver / biliary: Prior cholecystectomy. Liver is negative. Pancreas: negative Spleen: 14.0 x 13.1 x 6.7 cm. No focal finding. Adrenal glands: negative Kidneys / retroperitoneum: negative Pelvic structures: negative Bowel / peritoneum / mesenteries: negative Vessels: Mild atherosclerosis. Musculoskeletal / Body wall: Degenerative changes in the spine with mild scoliotic curvature. Small fatty right inguinal hernia. Lymph node assessment: negative IMPRESSION: 1. No lymphadenopathy in the chest, abdomen, or pelvis. 2. Spleen is borderline prominent but without focal finding. Report Dictated By: Tez Rodriguez MD at 06/10/2019 12:48 PM Report E-Signed By: Tez Rodriguez MD at 06/10/2019 1:16 PM WSN:[email or web address]
== END ==
LOC: CT 03:57
PROVIDERS: ATTEND Nurse Practitioner
DX: C81.18 Nodular sclerosis Hodgkin lymphoma, lymph nodes of multiple sites (principal)
CPT/HCPCS: 71260; 74177; Q9967